=== PATIENT | female | born 1965 | race Caucasian/White ===

== ENCOUNTER 2016-12-31 15:34 | Inpatient (IN) | payer OTHER ==
[~2016-12-31] VITALS: Ht 172.7 cm; Wt 62.0 kg
[2016-12-31] MEDS ORDERED: SODIUM CHLORIDE 0.9% 1,000 ML IV ONE (15:51)
[2016-12-31] MEDS ORDERED: PLEASE ENTER ALLERGIES MC SCH ×2 (16:00)
[2016-12-31] MEDS ORDERED: SODIUM CHLORIDE 0.9% 1,000ML IVBOLUS ONE ×2 (16:00→17:30)
[2016-12-31] MEDS ORDERED: GABA300C10 PO (16:19)
[2016-12-31] MEDS ORDERED: METF10002 PO (16:19)
[2016-12-31] MEDS ORDERED: LOSA25TA5 PO (16:19)
[2016-12-31 17:00] LABS: PH, VENOUS 7.261 pH (7.320-7.420)
[2016-12-31 17:06] LABS: DIFF TOTAL CELLS COUNTED 100 CELL DIFF
[2016-12-31 17:13] LABS: ASPARTATE AMINO TRANSFERASE 17 U/L (15-37); BLOOD UREA NITROGEN 30 mg/dL (7-18)
[2016-12-31] MEDS ORDERED: REGULAR INSULIN 62.5 UNITS in SODIUM CHLORIDE 0.9% 249.375 ML IV PRN ×2 (17:17→19:30)
[2016-12-31 17:18] LABS: IS PT STATUS REG ER OR PRE ER? YES
[2016-12-31] MEDS ORDERED: NS + 40MEQ KCL 1,000 ML IV ONE ×2 (17:31→17:36)
[2016-12-31] MEDS ORDERED: POTASSIUM CHLORIDE 20 MEQ TAB.ER.PRT ONE (17:36)
[2016-12-31] MEDS ORDERED: ONDANSETRON 2MG/ML, 2ML ONE (17:42)
[2016-12-31 17:43] LABS: VERIFY COUNTS? YES
[2016-12-31] MEDS ORDERED: POTASSIUM CHLORIDE 20 MEQ TAB.ER.PRT PO ONE (18:00)
[2016-12-31] MEDS ORDERED: ONDANSETRON 2MG/ML, 2ML IVPush ONE (18:00)
[2016-12-31] MEDS ORDERED: HYDROmorphone 1 MG/ML, 1ML ONE ×2 (18:15→20:09)
[2016-12-31] MEDS: HYDROmorphone 1 MG/ML, 1ML IVPush PRN ×2 (18:26→20:12)
[2016-12-31 19:20] LABS: BLOOD UREA NITROGEN 27 mg/dL (7-18)
[2016-12-31] MEDS ORDERED: ACETAMINOPHEN 325 MG TABLET PO PRN (19:30)
[2016-12-31 21:25] VITALS: BP 117/97
[2016-12-31] MEDS: NYSTATIN 500,000 UNITS/5 ML UDC PO SCH (21:49)
[2016-12-31] MEDS: GABAPENTIN 300 MG CAPSULE PO SCH (21:49)
[2016-12-31] MEDS: NS + 40MEQ KCL 1,000 ML IV SCH (21:49)
[2016-12-31] MEDS: ENOXAPARIN 40 MG/0.4 ML SQ SCH (21:50)
[2016-12-31] MEDS: HYDROcodone/APAP 5/325 TABLET PO PRN (21:50)
[2016-12-31 23:53] LABS: IS PT STATUS REG ER OR PRE ER? NO
[2017-01-01] MEDS: NS + 40MEQ KCL 1,000 ML IV SCH ×4 (00:30→15:30)
[2017-01-01 00:34] LABS: BLOOD UREA NITROGEN 27 mg/dL (7-18)
[2017-01-01] MEDS: D5%-0.45NACL+KCL 40MEQ 1,000 ML IV SCH ×4 (00:34→12:00)
[2017-01-01] MEDS: HYDROcodone/APAP 5/325 TABLET PO PRN ×4 (02:07→18:11)
[2017-01-01 04:00] VITALS: BP 131/90
[2017-01-01 04:09] LABS: DAU SCREEN DISCLAIMER
[2017-01-01 06:01] LABS: ASPARTATE AMINO TRANSFERASE 20 U/L (15-37); BLOOD UREA NITROGEN 21 mg/dL (7-18)
[2017-01-01 06:06] LABS: IS PT STATUS REG ER OR PRE ER? NO
[2017-01-01] MEDS: NYSTATIN 500,000 UNITS/5 ML UDC PO SCH ×4 (06:15→20:43)
[2017-01-01 06:35] LABS: DIFF TOTAL CELLS COUNTED 100 CELL DIFF
[2017-01-01 06:37] LABS: VERIFY COUNTS? YES
[2017-01-01 06:38] LABS: ANISOCYTOSIS 1+
[2017-01-01 08:55] LABS: BLOOD UREA NITROGEN 19 mg/dL (7-18)
[2017-01-01] MEDS ORDERED: ASPIRIN 325 MG TABLET PO SCH (09:00)
[2017-01-01] MEDS: GABAPENTIN 300 MG CAPSULE PO SCH ×3 (09:44→20:43)
[2017-01-01] MEDS: LOSARTAN 25MG TABLET PO SCH (09:44)
[2017-01-01] MEDS ORDERED: D5%-0.45% NACL 1,000 ML IV SCH (12:00)
[2017-01-01] MEDS: D5%-0.45% NACL 1,000 ML IV SCH ×2 (12:10→16:12)
[2017-01-01 12:49] LABS: BLOOD UREA NITROGEN 16 mg/dL (7-18)
[2017-01-01 16:33] LABS: BLOOD UREA NITROGEN 14 mg/dL (7-18)
[2017-01-01] MEDS ORDERED: INSULIN DETEMIR 100 UNITS/ML, PEN ONE (16:49)
[2017-01-01] MEDS: SODIUM CHLORIDE 0.9% 1,000 ML IV SCH (17:04)
[2017-01-01] MEDS ORDERED: INSULIN DETEMIR 100 UNITS/ML, PEN SQ-INSULIN SCH (20:00)
[2017-01-01 20:18] LABS: BLOOD UREA NITROGEN 14 mg/dL (7-18)
[2017-01-01] MEDS: ENOXAPARIN 40 MG/0.4 ML SQ SCH (20:43)
[2017-01-01] MEDS: INSULIN ASPART 100 UNITS/ML, PEN SQ-INSULIN SCH (20:43)
[2017-01-02] MEDS: HYDROcodone/APAP 5/325 TABLET PO PRN ×4 (00:08→16:27)
[2017-01-02 00:31] LABS: BLOOD UREA NITROGEN 12 mg/dL (7-18)
[2017-01-02] MEDS: SODIUM CHLORIDE 0.9% 1,000 ML IV SCH ×3 (02:31→23:57)
[2017-01-02 03:00] VITALS: BP 108/80
[2017-01-02] MEDS: NYSTATIN 500,000 UNITS/5 ML UDC PO SCH ×4 (05:05→23:37)
[2017-01-02 06:14] LABS: BLOOD UREA NITROGEN 12 mg/dL (7-18)
[2017-01-02] MEDS: INSULIN ASPART 100 UNITS/ML, PEN SQ-INSULIN SCH ×4 (07:00→21:15)
[2017-01-02] MEDS ORDERED: INSULIN DETEMIR 100 UNITS/ML, PEN SQ-INSULIN SCH ×2 (08:00→20:00)
[2017-01-02] MEDS ORDERED: DEXTROSE 50%, 50ML VIAL ONE (08:31)
[2017-01-02] MEDS: LOSARTAN 25MG TABLET PO SCH (08:44)
[2017-01-02] MEDS: GABAPENTIN 300 MG CAPSULE PO SCH ×3 (08:45→23:36)
[2017-01-02] MEDS: ASPIRIN 81 MG TABLET EC PO SCH (08:45)
[2017-01-02] MEDS: POTASSIUM CHLORIDE 20 MEQ TAB.ER.PRT PO SCH ×2 (08:45→17:35)
[2017-01-02] MEDS ORDERED: DEXTROSE 50%, 50ML VIAL IVPush ONE (09:00)
[2017-01-02] MEDS: CEFTRIAXONE PMX 1GM/50ML 50 ML IV SCH (12:09)
[2017-01-02 14:58] VITALS: BP 109/71
[2017-01-02] MEDS: OXYcodone IR 5MG TABLET PO PRN ×2 (17:36→21:18)
[2017-01-02 19:15] VITALS: BP 133/91
[2017-01-02] MEDS ORDERED: GLUCAGON 1 MG IM PRN (20:30)
[2017-01-02] MEDS ORDERED: DEXTROSE 50%, 50ML SYRINGE IVPush PRN (20:30)
[2017-01-02] MEDS ORDERED: DEXTROSE 4 GM TAB.CHEW PO PRN (20:30)
[2017-01-02] MEDS ORDERED: ENOXAPARIN 40 MG/0.4 ML SQ SCH (21:00)
[2017-01-02] MEDS: SODIUM CHLORIDE FLUSH 10ML SYR IVF SCH (23:36)
[2017-01-03 00:54] VITALS: BP 114/75
[2017-01-03] MEDS: OXYcodone IR 5MG TABLET PO PRN ×5 (01:41→23:36)
[2017-01-03 06:13] LABS: ASPARTATE AMINO TRANSFERASE 21 U/L (15-37); BLOOD UREA NITROGEN 6 mg/dL (7-18)
[2017-01-03] MEDS: ASPIRIN 81 MG TABLET EC PO SCH ×2 (06:21→09:00)
[2017-01-03] MEDS: NYSTATIN 500,000 UNITS/5 ML UDC PO SCH ×4 (06:21→21:19)
[2017-01-03 06:50] VITALS: BP 90/57
[2017-01-03] MEDS: INSULIN ASPART 100 UNITS/ML, PEN SQ-INSULIN SCH ×4 (07:00→21:00)
[2017-01-03] MEDS ORDERED: CYCLOBENZAPRINE 10 MG TABLET PO PRN (08:00)
[2017-01-03] MEDS: POTASSIUM CHLORIDE 20 MEQ TAB.ER.PRT PO SCH (09:00)
[2017-01-03] MEDS: GABAPENTIN 300 MG CAPSULE PO SCH ×3 (09:00→21:19)
[2017-01-03] MEDS: LOSARTAN 25MG TABLET PO SCH (09:00)
[2017-01-03] MEDS: SODIUM CHLORIDE FLUSH 10ML SYR IVF SCH ×2 (09:00→21:00)
[2017-01-03] MEDS ORDERED: REGADENOSON 0.4 MG/5 ML SYRINGE ONE (09:02)
[2017-01-03 11:48] LABS: IS PT STATUS REG ER OR PRE ER? NO
[2017-01-03] MEDS: CEFTRIAXONE PMX 1GM/50ML 50 ML IV SCH (11:50)
[2017-01-03] MEDS ORDERED: OMNIPAQUE 350 MG/ML, 100ML BOTTLE ONE (12:03)
[2017-01-03 12:45] VITALS: BP 91/70
[2017-01-03] MEDS: PIPERACILLIN/TAZO 3.375 GM in SODIUM CHLORIDE 0.9% 50 ML IV SCH ×2 (13:36→20:04)
[2017-01-03] MEDS: SODIUM CHLORIDE 0.9% 1,000 ML IV SCH ×2 (13:36→21:17)
[2017-01-03 13:49] LABS: ABG COLLECTION SITE RIGHT RADIAL; COLLATERAL CIRCULATION TESTING NORMAL
[2017-01-03] MEDS: HYDROmorphone 1 MG/ML, 1ML IV PRN ×2 (15:34→20:12)
[2017-01-03] MEDS: ENOXAPARIN 40 MG/0.4 ML SQ SCH (23:36)
[2017-01-04] MEDS: PIPERACILLIN/TAZO 3.375 GM in SODIUM CHLORIDE 0.9% 50 ML IV SCH ×4 (00:19→20:17)
[2017-01-04 04:03] VITALS: BP 113/69
[2017-01-04 04:18] VITALS: BP 108/75
[2017-01-04 04:55] LABS: BLOOD UREA NITROGEN 5 mg/dL (7-18)
[2017-01-04 05:00] LABS: ASPARTATE AMINO TRANSFERASE 24 U/L (15-37)
[2017-01-04] MEDS: NYSTATIN 500,000 UNITS/5 ML UDC PO SCH ×4 (05:12→20:26)
[2017-01-04] MEDS: HYDROmorphone 1 MG/ML, 1ML IV PRN ×5 (05:12→23:13)
[2017-01-04] MEDS: ASPIRIN 81 MG TABLET EC PO SCH (05:13)
[2017-01-04] MEDS: NOREPINEPHRINE 4 MG in SODIUM CHLORIDE 0.9% 246 ML IV PRN ×2 (05:14→16:24)
[2017-01-04] MEDS: INSULIN ASPART 100 UNITS/ML, PEN SQ-INSULIN SCH ×4 (06:49→20:23)
[2017-01-04] MEDS: LOSARTAN 25MG TABLET PO SCH (08:56)
[2017-01-04] MEDS: OXYcodone IR 5MG TABLET PO PRN ×3 (10:58→20:17)
[2017-01-04] MEDS: GABAPENTIN 300 MG CAPSULE PO SCH ×3 (10:58→20:26)
[2017-01-04] MEDS: SODIUM CHLORIDE FLUSH 10ML SYR IVF SCH ×2 (11:00→20:17)
[2017-01-04] MEDS: SODIUM CHLORIDE 0.9% 1,000 ML IV SCH ×2 (13:38→23:18)
[2017-01-04] MEDS: ENOXAPARIN 40 MG/0.4 ML SQ SCH (23:20)
[2017-01-05] MEDS: PIPERACILLIN/TAZO 3.375 GM in SODIUM CHLORIDE 0.9% 50 ML IV SCH ×4 (00:26→19:29)
[2017-01-05 04:00] VITALS: BP 106/84
[2017-01-05] MEDS: OXYcodone IR 5MG TABLET PO PRN ×3 (04:28→16:08)
[2017-01-05 04:52] LABS: BLOOD UREA NITROGEN 4 mg/dL (7-18)
[2017-01-05 04:57] LABS: ASPARTATE AMINO TRANSFERASE 17 U/L (15-37)
[2017-01-05] MEDS: ASPIRIN 81 MG TABLET EC PO SCH (06:11)
[2017-01-05] MEDS: NYSTATIN 500,000 UNITS/5 ML UDC PO SCH ×4 (06:11→21:08)
[2017-01-05] MEDS: INSULIN ASPART 100 UNITS/ML, PEN SQ-INSULIN SCH ×4 (06:11→21:00)
[2017-01-05] MEDS: HYDROmorphone 1 MG/ML, 1ML IV PRN ×4 (06:57→22:53)
[2017-01-05] MEDS: LOSARTAN 25MG TABLET PO SCH (09:00)
[2017-01-05] MEDS: GABAPENTIN 300 MG CAPSULE PO SCH ×3 (10:39→21:08)
[2017-01-05] MEDS: SODIUM CHLORIDE FLUSH 10ML SYR IVF SCH ×2 (11:08→21:08)
[2017-01-05] MEDS: SODIUM CHLORIDE 0.9% 1,000 ML IV SCH ×2 (11:08→22:44)
[2017-01-05] MEDS: POTASSIUM CHLORIDE 20 MEQ TAB.ER.PRT PO SCH ×2 (16:09→17:37)
[2017-01-05] MEDS: ENOXAPARIN 40 MG/0.4 ML SQ SCH (22:53)
[2017-01-06] MEDS: PIPERACILLIN/TAZO 3.375 GM in SODIUM CHLORIDE 0.9% 50 ML IV SCH ×4 (01:04→19:56)
[2017-01-06] MEDS: HYDROmorphone 1 MG/ML, 1ML IV PRN ×5 (03:00→21:28)
[2017-01-06 04:00] VITALS: BP 80/63
[2017-01-06 05:07] LABS: BLOOD UREA NITROGEN 3 mg/dL (7-18)
[2017-01-06] MEDS: ASPIRIN 81 MG TABLET EC PO SCH (06:17)
[2017-01-06] MEDS: NYSTATIN 500,000 UNITS/5 ML UDC PO SCH ×4 (06:17→19:57)
[2017-01-06] MEDS: INSULIN ASPART 100 UNITS/ML, PEN SQ-INSULIN SCH ×4 (07:00→21:29)
[2017-01-06] MEDS ORDERED: MAGNESIUM SULFATE PMX 4GM/100M 100 ML IV ONE (07:30)
[2017-01-06] MEDS: POTASSIUM CHLORIDE 20 MEQ TAB.ER.PRT PO SCH (08:12)
[2017-01-06] MEDS: SODIUM CHLORIDE 0.9% 1,000 ML IV SCH ×2 (08:12→19:56)
[2017-01-06] MEDS: SODIUM CHLORIDE FLUSH 10ML SYR IVF SCH ×2 (08:12→19:57)
[2017-01-06] MEDS: LOSARTAN 25MG TABLET PO SCH (08:12)
[2017-01-06] MEDS: GABAPENTIN 300 MG CAPSULE PO SCH ×3 (08:13→19:58)
[2017-01-06] MEDS: POTASSIUM CHLORIDE 10% 40 MEQ/30 ML UDC PO SCH ×2 (08:13→19:57)
[2017-01-06 10:50] VITALS: BP 100/44
[2017-01-06 12:52] VITALS: BP 119/61
[2017-01-06] MEDS: ENOXAPARIN 40 MG/0.4 ML SQ SCH (19:57)
[2017-01-06 20:00] VITALS: BP 119/61
[2017-01-07] MEDS: PIPERACILLIN/TAZO 3.375 GM in SODIUM CHLORIDE 0.9% 50 ML IV SCH ×4 (01:17→21:17)
[2017-01-07 01:38] VITALS: BP 120/68
[2017-01-07] MEDS: HYDROmorphone 1 MG/ML, 1ML IV PRN ×4 (03:36→15:45)
[2017-01-07 04:14] LABS: BLOOD UREA NITROGEN 3 mg/dL (7-18)
[2017-01-07] MEDS: NYSTATIN 500,000 UNITS/5 ML UDC PO SCH ×4 (05:29→21:17)
[2017-01-07] MEDS: ASPIRIN 81 MG TABLET EC PO SCH (05:29)
[2017-01-07] MEDS: SODIUM CHLORIDE 0.9% 1,000 ML IV SCH ×2 (05:29→17:45)
[2017-01-07 06:30] VITALS: BP 111/63
[2017-01-07] MEDS: INSULIN ASPART 100 UNITS/ML, PEN SQ-INSULIN SCH ×4 (07:00→21:00)
[2017-01-07] MEDS: GABAPENTIN 300 MG CAPSULE PO SCH ×3 (08:20→21:17)
[2017-01-07] MEDS: SODIUM CHLORIDE FLUSH 10ML SYR IVF SCH ×2 (08:20→21:17)
[2017-01-07] MEDS: LOSARTAN 25MG TABLET PO SCH (08:20)
[2017-01-07 12:58] VITALS: BP 106/69
[2017-01-07 14:07] LABS: ANA DIRECT Negative (Negative); COMPLEMENT C3 126 mg/dL (82-167); COMPLEMENT C4 38 mg/dL (14-44); INTERMYOFIBRILLAR AB Negative (Neg:<1:20); MITOCHONDRIAL (M2) AB 2.4 Units (0.0-20.0); PARIETAL CELL AB 1.7 Units (0.0-20.0); RA LATEX TURBIDITY <10.0 IU/mL (0.0-13.9); SARCOLEMMA AB Negative (Neg:<1:20); SJOGREN'S SS-A AB <0.2 AI (0.0-0.9); STRIATION AB Negative (Neg:<1:40); THYROID PEROXIDASE (TPO) AB 6 IU/mL (0-34)
[2017-01-07 16:24] LABS: BLOOD UREA NITROGEN 3 mg/dL (7-18)
[2017-01-07 20:08] VITALS: BP 106/74
[2017-01-07] MEDS: ENOXAPARIN 40 MG/0.4 ML SQ SCH (21:17)
[2017-01-07] MEDS: OXYcodone IR 5MG TABLET PO PRN (21:33)
[2017-01-08] MEDS: HYDROmorphone 1 MG/ML, 1ML IV PRN ×3 (00:14→11:16)
[2017-01-08] MEDS: PIPERACILLIN/TAZO 3.375 GM in SODIUM CHLORIDE 0.9% 50 ML IV SCH ×4 (02:18→21:28)
[2017-01-08 02:22] VITALS: BP 102/63
[2017-01-08] MEDS: ASPIRIN 81 MG TABLET EC PO SCH (05:05)
[2017-01-08] MEDS: NYSTATIN 500,000 UNITS/5 ML UDC PO SCH ×4 (05:05→21:00)
[2017-01-08] MEDS: SODIUM CHLORIDE 0.9% 1,000 ML IV SCH ×2 (05:08→13:00)
[2017-01-08 06:07] LABS: ASPARTATE AMINO TRANSFERASE 11 U/L (15-37); BLOOD UREA NITROGEN 3 mg/dL (7-18)
[2017-01-08] MEDS: INSULIN ASPART 100 UNITS/ML, PEN SQ-INSULIN SCH ×4 (07:00→21:33)
[2017-01-08 07:21] VITALS: BP 91/54
[2017-01-08] MEDS ORDERED: MIDAZOLAM 1 MG/ML, 5ML ONE (08:00)
[2017-01-08] MEDS ORDERED: SUCCINYLCHOLINE 20 MG/ML, 10ML ONE (08:00)
[2017-01-08] MEDS ORDERED: ETOMIDATE 20 MG/10 ML ONE (08:00)
[2017-01-08] MEDS ORDERED: PROPOFOL 10 MG/ML, 100ML IV ONE (08:00)
[2017-01-08] MEDS: LOSARTAN 25MG TABLET PO SCH (09:00)
[2017-01-08] MEDS: GABAPENTIN 300 MG CAPSULE PO SCH ×3 (10:06→21:00)
[2017-01-08] MEDS: OXYcodone IR 5MG TABLET PO PRN (10:06)
[2017-01-08] MEDS: SODIUM CHLORIDE FLUSH 10ML SYR IVF SCH ×2 (10:07→21:28)
[2017-01-08 11:03] VITALS: BP 124/66
[2017-01-08] MEDS ORDERED: HYDROmorphone 1 MG/ML, 1ML ONE (11:12)
[2017-01-08] MEDS ORDERED: LORazepam 2 MG/ML, 1ML ONE (13:40)
[2017-01-08] MEDS ORDERED: OMNIPAQUE 350 MG/ML, 100ML BOTTLE ONE (13:58)
[2017-01-08] MEDS ORDERED: VANCOMYCIN PMX 1GM/200ML 200 ML IV STA (14:17)
[2017-01-08 14:24] VITALS: BP 153/97
[2017-01-08] MEDS ORDERED: PHARMACOKINETIC CONSULTATION MC ONE (14:30)
[2017-01-08] MEDS: VANCOMYCIN 1,400 MG in SODIUM CHLORIDE 0.9% 250 ML IV SCH (14:30)
[2017-01-08] MEDS ORDERED: PHARMACOKINETIC MONITORING MC PRN (14:30)
[2017-01-08] MEDS ORDERED: LORazepam 2 MG/ML, 1ML IVPush ONE (14:30)
[2017-01-08] MEDS ORDERED: POTASSIUM CHLORIDE 40 MEQ in SODIUM CHLORIDE 0.9% 500 ML IV ONE ×2 (14:30→22:30)
[2017-01-08] MEDS ORDERED: POTASSIUM PHOSPHATE 44 MEQ in SODIUM CHLORIDE 0.9% 500 ML IV ONE (14:30)
[2017-01-08] MEDS ORDERED: MAGNESIUM SULFATE PMX 2GM/50ML 50 ML IV ONE ×3 (14:30→20:30)
[2017-01-08] MEDS ORDERED: VANCOMYCIN PER PHARMACY MC PRN (14:30)
[2017-01-08] MEDS ORDERED: FUROSEMIDE 20 MG/2 ML ONE (14:33)
[2017-01-08 14:53] LABS: ABG COLLECTION SITE RIGHT RADIAL
[2017-01-08 14:54] LABS: COLLATERAL CIRCULATION TESTING NORMAL
[2017-01-08] MEDS ORDERED: FUROSEMIDE 40 MG/4 ML IV ONE (15:00)
[2017-01-08 16:24] LABS: ABG COLLECTION SITE LEFT RADIAL; COLLATERAL CIRCULATION TESTING NORMAL
[2017-01-08] MEDS: MICAFUNGIN 100 MG in SODIUM CHLORIDE 0.9% 100 ML IV SCH (18:24)
[2017-01-08] MEDS: methylPREDNISolone SOD SUCC 125 MG/2 ML IVPush SCH (18:30)
[2017-01-08] MEDS ORDERED: LIDOCAINE-MPF 1%, 2ML ENDO PRN (20:30)
[2017-01-08] MEDS ORDERED: MIDAZOLAM 1 MG/ML, 2ML IVPush PRN (20:30)
[2017-01-08 21:10] LABS: ABG COLLECTION SITE LEFT RADIAL; COLLATERAL CIRCULATION TESTING NORMAL
[2017-01-08] MEDS: ENOXAPARIN 40 MG/0.4 ML SQ SCH (21:34)
[2017-01-09] MEDS: PROPOFOL 100 ML IV PRN ×2 (00:11→06:17)
[2017-01-09] MEDS: methylPREDNISolone SOD SUCC 125 MG/2 ML IVPush SCH ×4 (00:54→17:43)
[2017-01-09] MEDS: PIPERACILLIN/TAZO 3.375 GM in SODIUM CHLORIDE 0.9% 50 ML IV SCH ×4 (02:05→20:56)
[2017-01-09] MEDS: NOREPINEPHRINE 4 MG in SODIUM CHLORIDE 0.9% 246 ML IV PRN ×2 (02:09→05:17)
[2017-01-09] MEDS: VANCOMYCIN 1,400 MG in SODIUM CHLORIDE 0.9% 250 ML IV SCH ×2 (02:12→14:51)
[2017-01-09 04:10] VITALS: BP 94/56
[2017-01-09 04:50] LABS: ABG COLLECTION SITE LEFT RADIAL; COLLATERAL CIRCULATION TESTING NORMAL
[2017-01-09 05:01] LABS: BLOOD UREA NITROGEN 5 mg/dL (7-18)
[2017-01-09] MEDS: FENTANYL PF 100 MCG/2ML IVPush PRN ×2 (05:02→17:08)
[2017-01-09] MEDS: ASPIRIN 81 MG TABLET EC PO SCH (05:48)
[2017-01-09] MEDS: NYSTATIN 500,000 UNITS/5 ML UDC PO SCH ×4 (06:00→20:59)
[2017-01-09] MEDS: INSULIN ASPART 100 UNITS/ML, PEN SQ-INSULIN SCH ×4 (06:22→21:07)
[2017-01-09] MEDS: SODIUM CHLORIDE FLUSH 10ML SYR IVF SCH ×2 (08:06→20:56)
[2017-01-09] MEDS: FAMOTIDINE 20 MG/2 ML IVPush SCH ×2 (10:02→20:55)
[2017-01-09] MEDS: GABAPENTIN 300 MG CAPSULE PO SCH ×3 (10:03→20:59)
[2017-01-09] MEDS: LOSARTAN 25MG TABLET PO SCH (10:03)
[2017-01-09] MEDS ORDERED: POTASSIUM CHLORIDE 40 MEQ in SODIUM CHLORIDE 0.9% 100 ML IV ONE (15:30)
[2017-01-09] MEDS ORDERED: FUROSEMIDE 20 MG/2 ML IV ONE (15:30)
[2017-01-09] MEDS: MICAFUNGIN 100 MG in SODIUM CHLORIDE 0.9% 100 ML IV SCH (16:39)
[2017-01-09] MEDS: HYDROmorphone 1 MG/ML, 1ML IV PRN (20:55)
[2017-01-09] MEDS: ENOXAPARIN 40 MG/0.4 ML SQ SCH (20:55)
[2017-01-10] MEDS: methylPREDNISolone SOD SUCC 125 MG/2 ML IVPush SCH ×5 (00:59→23:44)
[2017-01-10] MEDS: PIPERACILLIN/TAZO 3.375 GM in SODIUM CHLORIDE 0.9% 50 ML IV SCH ×4 (01:30→19:35)
[2017-01-10] MEDS: VANCOMYCIN 1,400 MG in SODIUM CHLORIDE 0.9% 250 ML IV SCH ×2 (01:44→21:59)
[2017-01-10] MEDS ORDERED: SODIUM CHLORIDE 0.9%, 500ML IVBOLUS ONE (02:00)
[2017-01-10] MEDS: PROPOFOL 100 ML IV PRN (04:02)
[2017-01-10 04:13] LABS: ASPARTATE AMINO TRANSFERASE 13 U/L (15-37); BLOOD UREA NITROGEN 8 mg/dL (7-18)
[2017-01-10 04:30] VITALS: BP 89/49
[2017-01-10] MEDS ORDERED: FUROSEMIDE 20 MG/2 ML IV ONE (04:30)
[2017-01-10 04:34] LABS: ABG COLLECTION SITE RIGHT RADIAL; COLLATERAL CIRCULATION TESTING NORMAL
[2017-01-10] MEDS: ASPIRIN 81 MG TABLET EC PO SCH (06:09)
[2017-01-10] MEDS: NYSTATIN 500,000 UNITS/5 ML UDC PO SCH ×4 (06:09→20:32)
[2017-01-10] MEDS: INSULIN ASPART 100 UNITS/ML, PEN SQ-INSULIN SCH ×4 (06:19→20:32)
[2017-01-10] MEDS: LOSARTAN 25MG TABLET PO SCH (08:59)
[2017-01-10] MEDS: FAMOTIDINE 20 MG/2 ML IVPush SCH ×2 (09:54→20:32)
[2017-01-10] MEDS: GABAPENTIN 300 MG CAPSULE PO SCH ×3 (09:54→20:32)
[2017-01-10] MEDS: SODIUM CHLORIDE FLUSH 10ML SYR IVF SCH ×2 (09:54→20:39)
[2017-01-10] MEDS: MICAFUNGIN 100 MG in SODIUM CHLORIDE 0.9% 100 ML IV SCH (16:29)
[2017-01-10] MEDS: NOREPINEPHRINE 4 MG in SODIUM CHLORIDE 0.9% 246 ML IV PRN (20:32)
[2017-01-10] MEDS: ENOXAPARIN 40 MG/0.4 ML SQ SCH (20:32)
[2017-01-11] MEDS ORDERED: SODIUM CHLORIDE 0.9%, 500ML IVBOLUS ONE (00:30)
[2017-01-11] MEDS: PIPERACILLIN/TAZO 3.375 GM in SODIUM CHLORIDE 0.9% 50 ML IV SCH ×4 (02:10→21:05)
[2017-01-11] MEDS: INSULIN ASPART 100 UNITS/ML, PEN SQ-INSULIN SCH ×4 (02:16→21:05)
[2017-01-11 04:37] LABS: ABG COLLECTION SITE RIGHT RADIAL; COLLATERAL CIRCULATION TESTING NORMAL
[2017-01-11 04:55] LABS: ASPARTATE AMINO TRANSFERASE 9 U/L (15-37); BLOOD UREA NITROGEN 15 mg/dL (7-18)
[2017-01-11 05:07] LABS: HIV 1&2 ANTIBODY SCREEN Nonreactive (Nonreactive); HIV-1 p24 ANTIGEN Nonreactive (Nonreactive)
[2017-01-11 05:10] VITALS: BP 98/74
[2017-01-11] MEDS: NYSTATIN 500,000 UNITS/5 ML UDC PO SCH ×4 (05:22→21:06)
[2017-01-11] MEDS ORDERED: ASPIRIN 81 MG TABLET EC PO SCH (06:00)
[2017-01-11] MEDS: methylPREDNISolone SOD SUCC 125 MG/2 ML IVPush SCH ×2 (06:09→21:06)
[2017-01-11] MEDS: ASPIRIN 81 MG TABLET CHEW PO SCH (06:23)
[2017-01-11] MEDS: SODIUM CHLORIDE FLUSH 10ML SYR IVF SCH ×2 (08:55→21:06)
[2017-01-11] MEDS: LOSARTAN 25MG TABLET PO SCH (08:56)
[2017-01-11] MEDS: FAMOTIDINE 20 MG/2 ML IVPush SCH ×2 (08:56→21:06)
[2017-01-11] MEDS: GABAPENTIN 300 MG CAPSULE PO SCH ×3 (08:56→21:00)
[2017-01-11] MEDS: OXYcodone IR 5MG TABLET PO PRN ×2 (10:26→21:52)
[2017-01-11] MEDS ORDERED: GADOBUTROL 7.5 MMOL/7.5 ML PFS ONE (18:27)
[2017-01-11] MEDS: VANCOMYCIN 1,400 MG in SODIUM CHLORIDE 0.9% 250 ML IV SCH (19:03)
[2017-01-11] MEDS: ENOXAPARIN 40 MG/0.4 ML SQ SCH (21:06)
[2017-01-11] MEDS: MICAFUNGIN 100 MG in SODIUM CHLORIDE 0.9% 100 ML IV SCH (21:52)
[2017-01-11] MEDS: PROPOFOL 100 ML IV PRN (23:16)
[2017-01-12] MEDS: INSULIN ASPART 100 UNITS/ML, PEN SQ-INSULIN SCH ×4 (03:22→20:48)
[2017-01-12] MEDS: PIPERACILLIN/TAZO 3.375 GM in SODIUM CHLORIDE 0.9% 50 ML IV SCH ×4 (03:22→20:48)
[2017-01-12] MEDS: PROPOFOL 100 ML IV PRN (04:29)
[2017-01-12 04:34] LABS: ABG COLLECTION SITE LEFT RADIAL; COLLATERAL CIRCULATION TESTING NORMAL
[2017-01-12] MEDS: NYSTATIN 500,000 UNITS/5 ML UDC PO SCH ×4 (05:44→20:49)
[2017-01-12] MEDS: ASPIRIN 81 MG TABLET CHEW PO SCH (05:44)
[2017-01-12 06:10] VITALS: BP 115/69
[2017-01-12 07:22] LABS: FIO2 30 %
[2017-01-12] MEDS: LOSARTAN 25MG TABLET PO SCH (09:00)
[2017-01-12 09:22] LABS: BLOOD UREA NITROGEN 24 mg/dL (7-18)
[2017-01-12] MEDS: GABAPENTIN 300 MG CAPSULE PO SCH ×3 (09:31→20:49)
[2017-01-12] MEDS: methylPREDNISolone SOD SUCC 125 MG/2 ML IVPush SCH ×2 (09:33→20:48)
[2017-01-12] MEDS: FAMOTIDINE 20 MG/2 ML IVPush SCH ×2 (09:33→20:48)
[2017-01-12] MEDS: SODIUM CHLORIDE FLUSH 10ML SYR IVF SCH ×2 (09:51→20:49)
[2017-01-12 10:21] LABS: ASPARTATE AMINO TRANSFERASE 16 U/L (15-37)
[2017-01-12 10:43] LABS: HEP B SURF. AB < 3.1 mIU/mL (0.0-10.0)
[2017-01-12 11:21] LABS: HEPATITIS C VIRUS ANTIBODY Nonreactive (Nonreactive)
[2017-01-12] MEDS: VANCOMYCIN 1,400 MG in SODIUM CHLORIDE 0.9% 250 ML IV SCH (13:06)
[2017-01-12] MEDS ORDERED: ALBUMIN HUMAN 25% 100 ML IV ONE (14:00)
[2017-01-12] MEDS ORDERED: FUROSEMIDE 40 MG/4 ML IV ONE (15:30)
[2017-01-12] MEDS: MICAFUNGIN 100 MG in SODIUM CHLORIDE 0.9% 100 ML IV SCH (20:48)
[2017-01-12] MEDS: ENOXAPARIN 40 MG/0.4 ML SQ SCH (20:49)
[2017-01-12] MEDS: OXYcodone IR 5MG TABLET PO PRN (20:49)
[2017-01-13] MEDS: INSULIN ASPART 100 UNITS/ML, PEN SQ-INSULIN SCH ×4 (04:01→20:42)
[2017-01-13] MEDS: PIPERACILLIN/TAZO 3.375 GM in SODIUM CHLORIDE 0.9% 50 ML IV SCH ×4 (04:02→23:42)
[2017-01-13 04:42] LABS: ABG COLLECTION SITE RIGHT RADIAL; COLLATERAL CIRCULATION TESTING NORMAL
[2017-01-13 05:04] VITALS: BP 121/82
[2017-01-13 05:19] LABS: BLOOD UREA NITROGEN 25 mg/dL (7-18)
[2017-01-13] MEDS: OXYcodone IR 5MG TABLET PO PRN ×2 (05:48→20:48)
[2017-01-13] MEDS: NYSTATIN 500,000 UNITS/5 ML UDC PO SCH ×4 (05:48→20:41)
[2017-01-13] MEDS: ASPIRIN 81 MG TABLET CHEW PO SCH (06:20)
[2017-01-13] MEDS: VANCOMYCIN 1,400 MG in SODIUM CHLORIDE 0.9% 250 ML IV SCH (07:00)
[2017-01-13] MEDS: methylPREDNISolone SOD SUCC 125 MG/2 ML IVPush SCH (09:00)
[2017-01-13] MEDS: FAMOTIDINE 20 MG/2 ML IVPush SCH ×2 (09:35→20:41)
[2017-01-13] MEDS: LOSARTAN 25MG TABLET PO SCH (09:35)
[2017-01-13] MEDS: GABAPENTIN 300 MG CAPSULE PO SCH ×3 (09:35→20:41)
[2017-01-13] MEDS: SODIUM CHLORIDE FLUSH 10ML SYR IVF SCH ×2 (09:35→20:41)
[2017-01-13 12:55] VITALS: BP 121/88
[2017-01-13 19:53] VITALS: BP 101/63
[2017-01-13] MEDS: ENOXAPARIN 40 MG/0.4 ML SQ SCH (20:41)
[2017-01-13] MEDS: MICAFUNGIN 100 MG in SODIUM CHLORIDE 0.9% 100 ML IV SCH (22:21)
[2017-01-14] MEDS: VANCOMYCIN 1,400 MG in SODIUM CHLORIDE 0.9% 250 ML IV SCH (01:38)
[2017-01-14 02:23] VITALS: BP 136/72
[2017-01-14] MEDS: PIPERACILLIN/TAZO 3.375 GM in SODIUM CHLORIDE 0.9% 50 ML IV SCH ×4 (03:57→22:35)
[2017-01-14 04:35] LABS: ASPARTATE AMINO TRANSFERASE 8 U/L (15-37); BLOOD UREA NITROGEN 29 mg/dL (7-18)
[2017-01-14] MEDS: ASPIRIN 81 MG TABLET CHEW PO SCH (05:08)
[2017-01-14] MEDS: NYSTATIN 500,000 UNITS/5 ML UDC PO SCH ×4 (05:08→21:11)
[2017-01-14] MEDS: INSULIN ASPART 100 UNITS/ML, PEN SQ-INSULIN SCH ×4 (07:00→21:13)
[2017-01-14 08:00] VITALS: BP 131/71
[2017-01-14] MEDS: LOSARTAN 25MG TABLET PO SCH (09:29)
[2017-01-14] MEDS: FAMOTIDINE 20 MG/2 ML IVPush SCH ×2 (09:29→21:21)
[2017-01-14] MEDS: GABAPENTIN 300 MG CAPSULE PO SCH ×3 (09:29→21:11)
[2017-01-14] MEDS: SODIUM CHLORIDE FLUSH 10ML SYR IVF SCH ×2 (09:29→21:00)
[2017-01-14 15:03] VITALS: BP 129/73
[2017-01-14] MEDS ORDERED: POTASSIUM CHLORIDE 20 MEQ TAB.ER.PRT PO ONE (15:30)
[2017-01-14 20:59] VITALS: BP 133/83
[2017-01-14] MEDS: ENOXAPARIN 40 MG/0.4 ML SQ SCH (21:12)
[2017-01-14] MEDS: OXYcodone IR 5MG TABLET PO PRN (21:13)
[2017-01-14] MEDS: MICAFUNGIN 100 MG in SODIUM CHLORIDE 0.9% 100 ML IV SCH (21:13)
[2017-01-15 02:06] VITALS: BP 133/87
[2017-01-15] MEDS: PIPERACILLIN/TAZO 3.375 GM in SODIUM CHLORIDE 0.9% 50 ML IV SCH ×4 (03:40→23:20)
[2017-01-15 04:09] LABS: BLOOD UREA NITROGEN 29 mg/dL (7-18); DIFF TOTAL CELLS COUNTED 100 CELL DIFF
[2017-01-15 04:12] LABS: ANISOCYTOSIS 1+; POLYCHROMASIA 1+; VERIFY COUNTS? YES
[2017-01-15 04:13] LABS: HYPOCHROMIA 1+; MONOS WITH VACUOLES 1+
[2017-01-15] MEDS: OXYcodone IR 5MG TABLET PO PRN (04:59)
[2017-01-15] MEDS: ASPIRIN 81 MG TABLET CHEW PO SCH (05:39)
[2017-01-15] MEDS: NYSTATIN 500,000 UNITS/5 ML UDC PO SCH ×4 (05:39→21:13)
[2017-01-15 06:38] VITALS: BP 131/82
[2017-01-15] MEDS: INSULIN ASPART 100 UNITS/ML, PEN SQ-INSULIN SCH ×4 (07:00→21:14)
[2017-01-15] MEDS: FAMOTIDINE 20 MG/2 ML IVPush SCH ×2 (08:52→21:13)
[2017-01-15] MEDS: SODIUM CHLORIDE FLUSH 10ML SYR IVF SCH ×2 (08:52→21:00)
[2017-01-15] MEDS: LOSARTAN 25MG TABLET PO SCH (08:53)
[2017-01-15] MEDS: GABAPENTIN 300 MG CAPSULE PO SCH ×3 (08:53→21:13)
[2017-01-15 13:17] VITALS: BP 135/84
[2017-01-15] MEDS: HYDROmorphone 1 MG/ML, 1ML IV PRN (17:11)
[2017-01-15 20:58] VITALS: BP 146/105
[2017-01-15] MEDS: MICAFUNGIN 100 MG in SODIUM CHLORIDE 0.9% 100 ML IV SCH (21:13)
[2017-01-15] MEDS: ENOXAPARIN 40 MG/0.4 ML SQ SCH (21:14)
[2017-01-16 02:48] VITALS: BP 143/96
[2017-01-16] MEDS: OXYcodone IR 5MG TABLET PO PRN ×3 (03:44→17:28)
[2017-01-16 03:58] LABS: BLOOD UREA NITROGEN 27 mg/dL (7-18)
[2017-01-16] MEDS: ASPIRIN 81 MG TABLET CHEW PO SCH (05:24)
[2017-01-16] MEDS: PIPERACILLIN/TAZO 3.375 GM in SODIUM CHLORIDE 0.9% 50 ML IV SCH ×4 (05:24→22:36)
[2017-01-16] MEDS: NYSTATIN 500,000 UNITS/5 ML UDC PO SCH ×4 (06:07→22:24)
[2017-01-16 07:21] VITALS: BP 116/87
[2017-01-16] MEDS: INSULIN ASPART 100 UNITS/ML, PEN SQ-INSULIN SCH ×4 (08:00→21:00)
[2017-01-16] MEDS: FAMOTIDINE 20 MG/2 ML IVPush SCH ×2 (09:04→22:23)
[2017-01-16] MEDS: SODIUM CHLORIDE FLUSH 10ML SYR IVF SCH ×2 (09:04→22:26)
[2017-01-16] MEDS: GABAPENTIN 300 MG CAPSULE PO SCH ×3 (09:04→22:24)
[2017-01-16] MEDS: LOSARTAN 25MG TABLET PO SCH (09:05)
[2017-01-16 14:17] VITALS: BP 122/84
[2017-01-16 17:00] VITALS: BP 142/90
[2017-01-16] MEDS ORDERED: POTASSIUM CHLORIDE 20 MEQ TAB.ER.PRT PO ONE (17:00)
[2017-01-16] MEDS: METOPROLOL TARTRATE 25 MG TABLET PO SCH (17:33)
[2017-01-16 18:27] VITALS: BP 138/75
[2017-01-16] MEDS: ENOXAPARIN 40 MG/0.4 ML SQ SCH (22:27)
[2017-01-16 22:53] LABS: ABG COLLECTION SITE RIGHT RADIAL; COLLATERAL CIRCULATION TESTING NORMAL
[2017-01-16 23:26] LABS: ABG COLLECTION SITE RIGHT RADIAL; COLLATERAL CIRCULATION TESTING NORMAL
[2017-01-16] MEDS: MICAFUNGIN 100 MG in SODIUM CHLORIDE 0.9% 100 ML IV SCH (23:33)
[2017-01-17] MEDS ORDERED: FUROSEMIDE 20 MG/2 ML ONE (00:10)
[2017-01-17] MEDS ORDERED: VANCOMYCIN PER PHARMACY MC PRN (00:30)
[2017-01-17] MEDS ORDERED: FUROSEMIDE 20 MG/2 ML IV ONE (00:30)
[2017-01-17 00:47] VITALS: BP 108/86
[2017-01-17 01:01] LABS: ABG COLLECTION SITE RIGHT RADIAL; COLLATERAL CIRCULATION TESTING NORMAL
[2017-01-17 01:14] LABS: BLOOD UREA NITROGEN 25 mg/dL (7-18)
[2017-01-17] MEDS: PIPERACILLIN/TAZO 3.375 GM in SODIUM CHLORIDE 0.9% 50 ML IV SCH ×4 (03:19→21:53)
[2017-01-17] MEDS: METOPROLOL TARTRATE 25 MG TABLET PO SCH ×2 (06:41→16:48)
[2017-01-17] MEDS: ASPIRIN 81 MG TABLET CHEW PO SCH (06:41)
[2017-01-17] MEDS: NYSTATIN 500,000 UNITS/5 ML UDC PO SCH ×4 (06:43→20:12)
[2017-01-17] MEDS: INSULIN ASPART 100 UNITS/ML, PEN SQ-INSULIN SCH ×4 (07:00→20:13)
[2017-01-17 07:02] VITALS: BP 121/80
[2017-01-17] MEDS: LOSARTAN 25MG TABLET PO SCH (08:24)
[2017-01-17] MEDS: FAMOTIDINE 20 MG/2 ML IVPush SCH ×2 (08:24→20:12)
[2017-01-17] MEDS: GABAPENTIN 300 MG CAPSULE PO SCH ×3 (08:24→20:12)
[2017-01-17] MEDS: SODIUM CHLORIDE FLUSH 10ML SYR IVF SCH ×2 (08:25→20:11)
[2017-01-17] MEDS ORDERED: VANCOMYCIN PMX 1GM/200ML 200 ML IVPB ONE (11:00)
[2017-01-17 13:03] VITALS: BP 115/73
[2017-01-17 18:35] VITALS: BP 126/88
[2017-01-17] MEDS: SODIUM CHLORIDE 0.9% 1,000 ML IV SCH (20:10)
[2017-01-17] MEDS: OXYcodone IR 5MG TABLET PO PRN (20:11)
[2017-01-17] MEDS: ENOXAPARIN 40 MG/0.4 ML SQ SCH (20:13)
[2017-01-17] MEDS: MICAFUNGIN 100 MG in SODIUM CHLORIDE 0.9% 100 ML IV SCH (21:39)
[2017-01-18 02:21] VITALS: BP 132/81
[2017-01-18] MEDS: METOPROLOL TARTRATE 25 MG TABLET PO SCH ×2 (04:47→16:56)
[2017-01-18] MEDS: ASPIRIN 81 MG TABLET CHEW PO SCH (04:47)
[2017-01-18] MEDS: NYSTATIN 500,000 UNITS/5 ML UDC PO SCH ×4 (04:47→21:00)
[2017-01-18] MEDS: PIPERACILLIN/TAZO 3.375 GM in SODIUM CHLORIDE 0.9% 50 ML IV SCH ×4 (05:49→21:59)
[2017-01-18 06:38] LABS: DIFF TOTAL CELLS COUNTED 100 CELL DIFF
[2017-01-18 06:45] LABS: ASPARTATE AMINO TRANSFERASE 14 U/L (15-37); BLOOD UREA NITROGEN 24 mg/dL (7-18)
[2017-01-18 06:58] LABS: POLYCHROMASIA 1+; VERIFY COUNTS? YES
[2017-01-18] MEDS: INSULIN ASPART 100 UNITS/ML, PEN SQ-INSULIN SCH ×4 (07:00→21:00)
[2017-01-18] MEDS ORDERED: POTASSIUM CHLORIDE 40 MEQ in SODIUM CHLORIDE 0.9% 500 ML IV ONE (08:00)
[2017-01-18] MEDS ORDERED: FUROSEMIDE 40 MG/4 ML IV ONE (08:00)
[2017-01-18] MEDS ORDERED: POTASSIUM CHLORIDE 20 MEQ TAB.ER.PRT PO STA (08:02)
[2017-01-18] MEDS ORDERED: FUROSEMIDE 20 MG/2 ML ONE (08:03)
[2017-01-18] MEDS: FAMOTIDINE 20 MG/2 ML IVPush SCH ×2 (09:00→20:58)
[2017-01-18] MEDS ORDERED: POTASSIUM PHOSPHATE 22 MEQ in SODIUM CHLORIDE 0.9% 500 ML IV ONE (09:00)
[2017-01-18] MEDS: GABAPENTIN 300 MG CAPSULE PO SCH ×3 (09:00→20:59)
[2017-01-18] MEDS: LOSARTAN 25MG TABLET PO SCH (09:00)
[2017-01-18 09:25] VITALS: BP 115/83
[2017-01-18 12:25] VITALS: BP 137/78
[2017-01-18] MEDS: SODIUM CHLORIDE FLUSH 10ML SYR IVF SCH ×2 (12:59→20:59)
[2017-01-18 15:42] LABS: BLOOD UREA NITROGEN 20 mg/dL (7-18)
[2017-01-18 20:50] VITALS: BP 109/75
[2017-01-18] MEDS: ENOXAPARIN 40 MG/0.4 ML SQ SCH (20:59)
[2017-01-18] MEDS ORDERED: POTASSIUM CHLORIDE 20 MEQ TAB.ER.PRT PO ONE (21:00)
[2017-01-18] MEDS: MICAFUNGIN 100 MG in SODIUM CHLORIDE 0.9% 100 ML IV SCH (21:01)
[2017-01-18] MEDS: SODIUM CHLORIDE 0.9% 1,000 ML IV SCH (21:59)
[2017-01-19 01:29] VITALS: BP 122/85
[2017-01-19] MEDS: OXYcodone IR 5MG TABLET PO PRN ×2 (02:27→18:34)
[2017-01-19] MEDS: ASPIRIN 81 MG TABLET CHEW PO SCH (04:34)
[2017-01-19] MEDS: METOPROLOL TARTRATE 25 MG TABLET PO SCH ×2 (04:34→17:13)
[2017-01-19] MEDS: PIPERACILLIN/TAZO 3.375 GM in SODIUM CHLORIDE 0.9% 50 ML IV SCH ×3 (04:34→17:13)
[2017-01-19] MEDS: NYSTATIN 500,000 UNITS/5 ML UDC PO SCH ×4 (04:34→20:46)
[2017-01-19 06:26] LABS: BLOOD UREA NITROGEN 19 mg/dL (7-18)
[2017-01-19 06:43] LABS: DIFF TOTAL CELLS COUNTED 100 CELL DIFF
[2017-01-19 06:46] LABS: ANISOCYTOSIS 1+; VERIFY COUNTS? YES
[2017-01-19] MEDS: INSULIN ASPART 100 UNITS/ML, PEN SQ-INSULIN SCH ×4 (07:00→20:46)
[2017-01-19] MEDS ORDERED: VANCOMYCIN 1,100 MG in SODIUM CHLORIDE 0.9% 250 ML IV ONE (07:00)
[2017-01-19 08:03] VITALS: BP 97/59
[2017-01-19] MEDS: SODIUM CHLORIDE FLUSH 10ML SYR IVF SCH ×2 (09:04→20:45)
[2017-01-19] MEDS: FAMOTIDINE 20 MG/2 ML IVPush SCH ×2 (09:05→20:46)
[2017-01-19] MEDS: LOSARTAN 25MG TABLET PO SCH (09:05)
[2017-01-19] MEDS: GABAPENTIN 300 MG CAPSULE PO SCH ×3 (09:05→20:46)
[2017-01-19] MEDS ORDERED: FUROSEMIDE 40 MG/4 ML IV ONE (10:30)
[2017-01-19] MEDS ORDERED: POTASSIUM CHLORIDE 20 MEQ PACKET PO ONE (10:30)
[2017-01-19 13:00] VITALS: BP 106/68
[2017-01-19 17:00] VITALS: BP 125/71
[2017-01-19 18:54] VITALS: BP 100/68
[2017-01-19] MEDS: ENOXAPARIN 40 MG/0.4 ML SQ SCH (20:46)
[2017-01-19] MEDS: MICAFUNGIN 100 MG in SODIUM CHLORIDE 0.9% 100 ML IV SCH (20:47)
[2017-01-20 00:29] VITALS: BP 98/55
[2017-01-20] MEDS ORDERED: PIPERACILLIN/TAZO 3.375 GM in SODIUM CHLORIDE 0.9% 100 ML IV SCH (04:00)
[2017-01-20] MEDS: ASPIRIN 81 MG TABLET CHEW PO SCH (05:26)
[2017-01-20] MEDS: METOPROLOL TARTRATE 25 MG TABLET PO SCH ×2 (05:26→16:45)
[2017-01-20] MEDS: NYSTATIN 500,000 UNITS/5 ML UDC PO SCH ×4 (05:27→21:14)
[2017-01-20 05:59] LABS: BLOOD UREA NITROGEN 18 mg/dL (7-18)
[2017-01-20 06:50] VITALS: BP 88/61
[2017-01-20] MEDS: INSULIN ASPART 100 UNITS/ML, PEN SQ-INSULIN SCH ×4 (07:00→21:00)
[2017-01-20] MEDS: SODIUM CHLORIDE FLUSH 10ML SYR IVF SCH ×2 (08:41→21:14)
[2017-01-20] MEDS: GABAPENTIN 300 MG CAPSULE PO SCH ×3 (08:42→21:14)
[2017-01-20] MEDS: FAMOTIDINE 20 MG/2 ML IVPush SCH ×2 (08:42→21:14)
[2017-01-20] MEDS: LOSARTAN 25MG TABLET PO SCH (08:42)
[2017-01-20] MEDS ORDERED: FUROSEMIDE 40 MG/4 ML IV ONE (09:00)
[2017-01-20] MEDS ORDERED: DEXTROSE 5% 1,000 ML IV SCH (10:00)
[2017-01-20 12:25] VITALS: BP 86/55
[2017-01-20 15:19] VITALS: BP 106/70
[2017-01-20] MEDS ORDERED: MAGNESIUM SULFATE PMX 4GM/100M 100 ML IV ONE (15:30)
[2017-01-20] MEDS ORDERED: POTASSIUM PHOSPHATE 44 MEQ in SODIUM CHLORIDE 0.9% 500 ML IV ONE (15:30)
[2017-01-20] MEDS ORDERED: PIPERACILLIN/TAZO 3.375 GM in SODIUM CHLORIDE 0.9% 50 ML IV SCH (16:00)
[2017-01-20] MEDS ORDERED: METOPROLOL TARTRATE 25 MG TABLET PO SCH (18:00)
[2017-01-20 19:24] VITALS: BP 89/59
[2017-01-20] MEDS: VANCOMYCIN 1,200 MG in SODIUM CHLORIDE 0.9% 250 ML IV SCH (20:08)
[2017-01-20 21:12] VITALS: BP 102/72
[2017-01-20] MEDS: ALBUMIN HUMAN 25% 50 ML IV SCH (21:13)
[2017-01-20] MEDS: ENOXAPARIN 40 MG/0.4 ML SQ SCH (21:14)
[2017-01-20] MEDS: MICAFUNGIN 100 MG in SODIUM CHLORIDE 0.9% 100 ML IV SCH (22:08)
[2017-01-20] MEDS: DEXTROSE 5% 1,000 ML IV SCH (22:09)
[2017-01-20] MEDS: PIPERACILLIN/TAZO/PMX 3.375GM 50 ML IV SCH (23:14)
[2017-01-21 01:47] VITALS: BP 103/67
[2017-01-21] MEDS: OXYcodone IR 5MG TABLET PO PRN ×2 (03:29→10:36)
[2017-01-21 04:05] LABS: BLOOD UREA NITROGEN 17 mg/dL (7-18)
[2017-01-21 05:20] VITALS: BP 92/57
[2017-01-21] MEDS: PIPERACILLIN/TAZO/PMX 3.375GM 50 ML IV SCH ×4 (05:20→23:01)
[2017-01-21] MEDS: NYSTATIN 500,000 UNITS/5 ML UDC PO SCH ×4 (05:20→21:30)
[2017-01-21] MEDS: ASPIRIN 81 MG TABLET CHEW PO SCH (05:20)
[2017-01-21] MEDS: METOPROLOL TARTRATE 25 MG TABLET PO SCH ×2 (05:20→17:15)
[2017-01-21] MEDS: INSULIN ASPART 100 UNITS/ML, PEN SQ-INSULIN SCH ×4 (07:00→21:00)
[2017-01-21 08:07] VITALS: BP 110/70
[2017-01-21] MEDS: LOSARTAN 25MG TABLET PO SCH (09:00)
[2017-01-21] MEDS: SODIUM CHLORIDE FLUSH 10ML SYR IVF SCH ×2 (09:00→21:30)
[2017-01-21] MEDS: FAMOTIDINE 20 MG/2 ML IVPush SCH ×2 (09:07→21:30)
[2017-01-21] MEDS: ALBUMIN HUMAN 25% 50 ML IV SCH (09:07)
[2017-01-21] MEDS: GABAPENTIN 300 MG CAPSULE PO SCH ×3 (09:08→21:30)
[2017-01-21] MEDS: DEXTROSE 5% 1,000 ML IV SCH (10:36)
[2017-01-21 13:11] VITALS: BP 100/61
[2017-01-21] MEDS ORDERED: POTASSIUM CHLORIDE 40 MEQ in SODIUM CHLORIDE 0.9% 500 ML IV ONE (17:30)
[2017-01-21 20:31] VITALS: BP 110/5
[2017-01-21] MEDS: MICAFUNGIN 100 MG in SODIUM CHLORIDE 0.9% 100 ML IV SCH (21:30)
[2017-01-21] MEDS: ENOXAPARIN 40 MG/0.4 ML SQ SCH (21:30)
[2017-01-21 23:02] LABS: OCCBLD OBC PASS
[2017-01-22 01:30] VITALS: BP 102/74
[2017-01-22] MEDS: OXYcodone IR 5MG TABLET PO PRN (03:02)
[2017-01-22] MEDS: PIPERACILLIN/TAZO/PMX 3.375GM 50 ML IV SCH ×4 (05:27→23:50)
[2017-01-22] MEDS: METOPROLOL TARTRATE 25 MG TABLET PO SCH ×2 (05:27→17:47)
[2017-01-22] MEDS: NYSTATIN 500,000 UNITS/5 ML UDC PO SCH ×4 (05:27→20:33)
[2017-01-22] MEDS: ASPIRIN 81 MG TABLET CHEW PO SCH (05:27)
[2017-01-22 06:15] LABS: BLOOD UREA NITROGEN 14 mg/dL (7-18)
[2017-01-22] MEDS: INSULIN ASPART 100 UNITS/ML, PEN SQ-INSULIN SCH ×4 (07:00→20:34)
[2017-01-22 07:06] VITALS: BP 110/77
[2017-01-22] MEDS: SODIUM CHLORIDE FLUSH 10ML SYR IVF SCH ×2 (08:55→20:33)
[2017-01-22] MEDS: LOSARTAN 25MG TABLET PO SCH (09:00)
[2017-01-22] MEDS: GABAPENTIN 300 MG CAPSULE PO SCH ×3 (09:17→20:33)
[2017-01-22] MEDS: FAMOTIDINE 20 MG/2 ML IVPush SCH ×2 (09:17→20:33)
[2017-01-22] MEDS: VANCOMYCIN 1,200 MG in SODIUM CHLORIDE 0.9% 250 ML IV SCH (09:19)
[2017-01-22] MEDS: ALBUMIN HUMAN 25% 50 ML IV SCH (09:19)
[2017-01-22 13:31] VITALS: BP 113/76
[2017-01-22 19:03] VITALS: BP 141/95
[2017-01-22] MEDS: ENOXAPARIN 40 MG/0.4 ML SQ SCH (20:33)
[2017-01-22] MEDS: MICAFUNGIN 100 MG in SODIUM CHLORIDE 0.9% 100 ML IV SCH (20:34)
[2017-01-23] VITALS (10 sets, daily range): BP systolic 109–149; BP diastolic 62–102
[2017-01-23] MEDS: PIPERACILLIN/TAZO/PMX 3.375GM 50 ML IV SCH ×4 (04:55→23:45)
[2017-01-23] MEDS: NYSTATIN 500,000 UNITS/5 ML UDC PO SCH ×4 (04:55→20:45)
[2017-01-23] MEDS: ASPIRIN 81 MG TABLET CHEW PO SCH (04:55)
[2017-01-23] MEDS: METOPROLOL TARTRATE 25 MG TABLET PO SCH ×2 (04:55→18:06)
[2017-01-23 05:59] LABS: BLOOD UREA NITROGEN 12 mg/dL (7-18)
[2017-01-23] MEDS: INSULIN ASPART 100 UNITS/ML, PEN SQ-INSULIN SCH ×4 (09:00→20:45)
[2017-01-23] MEDS ORDERED: FUROSEMIDE 20 MG/2 ML IV ONE (09:30)
[2017-01-23] MEDS ORDERED: POTASSIUM CHLORIDE 20 MEQ TAB.ER.PRT PO SCH (09:30)
[2017-01-23] MEDS: ALBUMIN HUMAN 25% 50 ML IV SCH (10:45)
[2017-01-23] MEDS: SODIUM CHLORIDE FLUSH 10ML SYR IVF SCH ×2 (10:45→20:45)
[2017-01-23] MEDS: GABAPENTIN 300 MG CAPSULE PO SCH ×3 (10:47→20:45)
[2017-01-23] MEDS: FAMOTIDINE 20 MG/2 ML IVPush SCH ×2 (10:47→20:45)
[2017-01-23] MEDS: LOSARTAN 25MG TABLET PO SCH (10:47)
[2017-01-23] MEDS: POTASSIUM CHLORIDE 20 MEQ TAB.ER.PRT PO SCH ×3 (14:00→17:59)
[2017-01-23] MEDS: VANCOMYCIN 1,200 MG in SODIUM CHLORIDE 0.9% 250 ML IV SCH (20:03)
[2017-01-23] MEDS: ENOXAPARIN 40 MG/0.4 ML SQ SCH (20:45)
[2017-01-23] MEDS: MICAFUNGIN 100 MG in SODIUM CHLORIDE 0.9% 100 ML IV SCH (22:15)
[2017-01-24 02:05] VITALS: BP 117/73
[2017-01-24] MEDS: NYSTATIN 500,000 UNITS/5 ML UDC PO SCH ×5 (05:39→20:54)
[2017-01-24] MEDS: METOPROLOL TARTRATE 25 MG TABLET PO SCH ×2 (05:39→18:08)
[2017-01-24] MEDS: PIPERACILLIN/TAZO/PMX 3.375GM 50 ML IV SCH ×4 (05:39→23:07)
[2017-01-24] MEDS: ASPIRIN 81 MG TABLET CHEW PO SCH (05:39)
[2017-01-24 06:47] LABS: BLOOD UREA NITROGEN 12 mg/dL (7-18)
[2017-01-24 06:57] VITALS: BP 137/98
[2017-01-24] MEDS: INSULIN ASPART 100 UNITS/ML, PEN SQ-INSULIN SCH ×4 (07:00→21:00)
[2017-01-24 07:41] LABS: DIFF TOTAL CELLS COUNTED 100 CELL DIFF
[2017-01-24 08:27] LABS: ANISOCYTOSIS 1+; VERIFY COUNTS? YES
[2017-01-24] MEDS: ALBUMIN HUMAN 25% 50 ML IV SCH (09:28)
[2017-01-24] MEDS: FAMOTIDINE 20 MG/2 ML IVPush SCH ×2 (09:28→20:54)
[2017-01-24] MEDS: LOSARTAN 25MG TABLET PO SCH (09:28)
[2017-01-24] MEDS: SODIUM CHLORIDE FLUSH 10ML SYR IVF SCH ×2 (09:28→20:54)
[2017-01-24] MEDS: GABAPENTIN 300 MG CAPSULE PO SCH ×3 (09:28→20:53)
[2017-01-24 12:07] LABS: ASPARTATE AMINO TRANSFERASE 26 U/L (15-37); BLOOD UREA NITROGEN 11 mg/dL (7-18)
[2017-01-24] MEDS: DEXTROSE 5% 1,000 ML IV SCH ×2 (12:39→21:30)
[2017-01-24] MEDS: OXYcodone IR 5MG TABLET PO PRN (13:17)
[2017-01-24] MEDS ORDERED: VANCOMYCIN PER PHARMACY MC PRN (13:30)
[2017-01-24 13:43] VITALS: BP 124/85
[2017-01-24 19:53] VITALS: BP 137/91
[2017-01-24] MEDS: ENOXAPARIN 40 MG/0.4 ML SQ SCH (20:53)
[2017-01-24] MEDS: MICAFUNGIN 100 MG in SODIUM CHLORIDE 0.9% 100 ML IV SCH (20:54)
[2017-01-25] MEDS: OXYcodone IR 5MG TABLET PO PRN (01:18)
[2017-01-25 01:38] VITALS: BP 135/87
[2017-01-25] MEDS ORDERED: ENOXAPARIN 40 MG/0.4 ML SQ ONE (04:00)
[2017-01-25] MEDS: PIPERACILLIN/TAZO/PMX 3.375GM 50 ML IV SCH ×3 (04:44→18:30)
[2017-01-25 04:59] LABS: BLOOD UREA NITROGEN 11 mg/dL (7-18)
[2017-01-25] MEDS: METOPROLOL TARTRATE 25 MG TABLET PO SCH (06:00)
[2017-01-25] MEDS: ASPIRIN 81 MG TABLET CHEW PO SCH (06:00)
[2017-01-25] MEDS: LOSARTAN 25MG TABLET PO SCH (09:07)
[2017-01-25] MEDS: VANCOMYCIN 1,200 MG in SODIUM CHLORIDE 0.9% 250 ML IV SCH (13:00)
[2017-01-25] MEDS: ENOXAPARIN 80 MG/0.8 ML SQ SCH (15:35)
[2017-01-25] MEDS ORDERED: OMNIPAQUE 350 MG/ML, 100ML BOTTLE ONE (17:00)
[2017-01-25] MEDS: MICAFUNGIN 100 MG in SODIUM CHLORIDE 0.9% 100 ML IV SCH (22:50)
[2017-01-26] MEDS: PIPERACILLIN/TAZO/PMX 3.375GM 50 ML IV SCH ×4 (00:45→17:55)
[2017-01-26] MEDS: ENOXAPARIN 80 MG/0.8 ML SQ SCH ×2 (03:00→20:43)
[2017-01-26] MEDS: ASPIRIN 81 MG TABLET CHEW PO SCH (05:50)
[2017-01-26] MEDS: METOPROLOL TARTRATE 25 MG TABLET PO SCH ×2 (05:50→20:44)
[2017-01-26] MEDS ORDERED: POTASSIUM CHLORIDE 20 MEQ PACKET PO SCH (09:00)
[2017-01-26] MEDS: LOSARTAN 25MG TABLET PO SCH (10:01)
[2017-01-26 13:15] VITALS: BP 139/101
[2017-01-26 15:05] VITALS: BP 121/76
[2017-01-26 20:28] VITALS: BP 133/94
[2017-01-26] MEDS: FAMOTIDINE 20 MG/2 ML IVPush SCH (20:42)
[2017-01-26] MEDS: GABAPENTIN 300 MG CAPSULE PO SCH (20:42)
[2017-01-26] MEDS: SODIUM CHLORIDE FLUSH 10ML SYR IVF SCH (20:43)
[2017-01-26] MEDS: INSULIN ASPART 100 UNITS/ML, PEN SQ-INSULIN SCH (21:25)
[2017-01-26] MEDS: NYSTATIN 500,000 UNITS/5 ML UDC PO SCH (22:36)
[2017-01-26] MEDS: OXYcodone IR 5MG TABLET PO PRN (22:37)
[2017-01-26] MEDS: ALBUMIN HUMAN 25% 50 ML IV SCH (22:37)
[2017-01-26] MEDS: DEXTROSE 5% 1,000 ML IV SCH (23:30)
[2017-01-27] MEDS: MICAFUNGIN 100 MG in SODIUM CHLORIDE 0.9% 100 ML IV SCH (00:02)
[2017-01-27] MEDS: PIPERACILLIN/TAZO/PMX 3.375GM 50 ML IV SCH ×2 (01:05→06:44)
[2017-01-27] MEDS: VANCOMYCIN 1,200 MG in SODIUM CHLORIDE 0.9% 250 ML IV SCH (01:46)
[2017-01-27] MEDS ORDERED: LOPERAMIDE 2 MG CAPSULE PO ONE (02:00)
[2017-01-27 02:04] VITALS: BP 131/90
[2017-01-27] MEDS ORDERED: LOPERAMIDE 2 MG CAPSULE PO PRN (06:00)
[2017-01-27 06:37] LABS: BLOOD UREA NITROGEN 11 mg/dL (7-18)
[2017-01-27] MEDS: METOPROLOL TARTRATE 25 MG TABLET PO SCH ×2 (06:43→18:25)
[2017-01-27] MEDS: ASPIRIN 81 MG TABLET CHEW PO SCH (06:43)
[2017-01-27] MEDS: NYSTATIN 500,000 UNITS/5 ML UDC PO SCH ×4 (06:44→21:53)
[2017-01-27 07:25] VITALS: BP 152/102
[2017-01-27] MEDS: INSULIN ASPART 100 UNITS/ML, PEN SQ-INSULIN SCH ×4 (08:10→21:00)
[2017-01-27] MEDS: ENOXAPARIN 80 MG/0.8 ML SQ SCH ×2 (09:15→21:54)
[2017-01-27] MEDS: ALBUMIN HUMAN 25% 50 ML IV SCH (09:16)
[2017-01-27] MEDS: FAMOTIDINE 20 MG/2 ML IVPush SCH ×2 (09:17→21:53)
[2017-01-27] MEDS: SODIUM CHLORIDE FLUSH 10ML SYR IVF SCH ×2 (09:17→21:54)
[2017-01-27] MEDS: GABAPENTIN 300 MG CAPSULE PO SCH ×3 (09:18→21:53)
[2017-01-27] MEDS: DEXTROSE 5% 1,000 ML IV SCH ×2 (09:18→18:25)
[2017-01-27] MEDS: LOSARTAN 25MG TABLET PO SCH (09:18)
[2017-01-27] MEDS ORDERED: POTASSIUM CHLORIDE 80 MEQ in SODIUM CHLORIDE 0.9% 1,000 ML IV ONE (10:30)
[2017-01-27] MEDS: OXYcodone IR 5MG TABLET PO PRN ×2 (11:50→22:43)
[2017-01-27 13:00] VITALS: BP 155/99
[2017-01-27 20:00] VITALS: BP 142/96
[2017-01-27 20:28] LABS: BLOOD UREA NITROGEN 11 mg/dL (7-18)
[2017-01-28 00:50] VITALS: BP 134/93
[2017-01-28] MEDS: DEXTROSE 5% 1,000 ML IV SCH (05:30)
[2017-01-28] MEDS: ASPIRIN 81 MG TABLET CHEW PO SCH (05:40)
[2017-01-28] MEDS: METOPROLOL TARTRATE 25 MG TABLET PO SCH ×2 (05:41→17:08)
[2017-01-28] MEDS: OXYcodone IR 5MG TABLET PO PRN ×4 (05:44→23:41)
[2017-01-28] MEDS: INSULIN ASPART 100 UNITS/ML, PEN SQ-INSULIN SCH ×4 (07:00→21:00)
[2017-01-28 07:13] LABS: BLOOD UREA NITROGEN 11 mg/dL (7-18)
[2017-01-28 07:50] VITALS: BP 113/77
[2017-01-28] MEDS: ENOXAPARIN 80 MG/0.8 ML SQ SCH ×2 (09:09→20:00)
[2017-01-28] MEDS: ALBUMIN HUMAN 25% 50 ML IV SCH (09:09)
[2017-01-28] MEDS: FAMOTIDINE 20 MG/2 ML IVPush SCH ×2 (09:09→21:00)
[2017-01-28] MEDS: SODIUM CHLORIDE FLUSH 10ML SYR IVF SCH ×2 (09:10→21:00)
[2017-01-28] MEDS: NYSTATIN 500,000 UNITS/5 ML UDC PO SCH ×5 (09:18→21:00)
[2017-01-28] MEDS: CITALOPRAM 20 MG TABLET PO SCH (09:18)
[2017-01-28] MEDS: LOSARTAN 25MG TABLET PO SCH (09:18)
[2017-01-28] MEDS: GABAPENTIN 300 MG CAPSULE PO SCH ×3 (09:18→21:00)
[2017-01-28 10:28] LABS: BLOOD UREA NITROGEN 11 mg/dL (7-18)
[2017-01-28 14:00] VITALS: BP 149/92
[2017-01-28] MEDS ORDERED: SODIUM BICARBONATE 4.2%, 5ML ONE (14:57)
[2017-01-28] MEDS ORDERED: LIDOCAINE 1%, 20ML ONE (14:57)
[2017-01-28 16:05] LABS: CYTOLOGY BODY FLUID RECD INTO PATHOLOGY; CYTOLOGY BODY FLUID SOURCE PLEURAL FLUID
[2017-01-28] MEDS: POTASSIUM CHLORIDE 40 MEQ in SODIUM CHLORIDE 0.9% 500 ML IV SCH ×2 (16:19→23:41)
[2017-01-28 20:00] VITALS: BP 109/72
[2017-01-29] VITALS (11 sets, daily range): BP systolic 123–165; BP diastolic 86–103
[2017-01-29] MEDS ORDERED: CATHFLO-ALTEPLASE 2 MG/2 ML CATHFLUSH ONE (04:00)
[2017-01-29] MEDS: ASPIRIN 81 MG TABLET CHEW PO SCH (05:42)
[2017-01-29] MEDS: METOPROLOL TARTRATE 25 MG TABLET PO SCH ×2 (05:42→18:17)
[2017-01-29] MEDS: NYSTATIN 500,000 UNITS/5 ML UDC PO SCH ×4 (05:42→21:09)
[2017-01-29 06:07] LABS: BLOOD UREA NITROGEN 11 mg/dL (7-18)
[2017-01-29] MEDS: POTASSIUM CHLORIDE 40 MEQ in SODIUM CHLORIDE 0.9% 500 ML IV SCH (06:18)
[2017-01-29 06:35] LABS: DIFF TOTAL CELLS COUNTED 100 CELL DIFF
[2017-01-29 06:38] LABS: VERIFY COUNTS? YES
[2017-01-29] MEDS: OXYcodone IR 5MG TABLET PO PRN ×4 (06:45→23:06)
[2017-01-29] MEDS: INSULIN ASPART 100 UNITS/ML, PEN SQ-INSULIN SCH ×4 (07:00→21:00)
[2017-01-29] MEDS: LOSARTAN 25MG TABLET PO SCH (09:07)
[2017-01-29] MEDS: ENOXAPARIN 80 MG/0.8 ML SQ SCH ×2 (09:07→21:09)
[2017-01-29] MEDS: FAMOTIDINE 20 MG/2 ML IVPush SCH ×2 (09:07→21:09)
[2017-01-29] MEDS: GABAPENTIN 300 MG CAPSULE PO SCH ×3 (09:07→21:08)
[2017-01-29] MEDS: CITALOPRAM 20 MG TABLET PO SCH (09:07)
[2017-01-29] MEDS: SODIUM CHLORIDE FLUSH 10ML SYR IVF SCH ×2 (09:07→21:00)
[2017-01-29] MEDS: ALBUMIN HUMAN 25% 50 ML IV SCH (09:07)
[2017-01-29] MEDS ORDERED: FUROSEMIDE 40 MG/4 ML IV ONE (12:00)
[2017-01-30 00:46] VITALS: BP 105/69
[2017-01-30 05:53] LABS: BLOOD UREA NITROGEN 13 mg/dL (7-18)
[2017-01-30 05:55] VITALS: BP 118/80
[2017-01-30] MEDS: NYSTATIN 500,000 UNITS/5 ML UDC PO SCH ×4 (05:57→22:19)
[2017-01-30] MEDS: ASPIRIN 81 MG TABLET CHEW PO SCH (05:57)
[2017-01-30] MEDS: METOPROLOL TARTRATE 25 MG TABLET PO SCH ×2 (05:57→17:24)
[2017-01-30 06:35] VITALS: BP 117/79
[2017-01-30] MEDS: INSULIN ASPART 100 UNITS/ML, PEN SQ-INSULIN SCH ×4 (07:00→21:00)
[2017-01-30] MEDS: SODIUM CHLORIDE FLUSH 10ML SYR IVF SCH ×2 (09:00→22:19)
[2017-01-30] MEDS: GABAPENTIN 300 MG CAPSULE PO SCH ×3 (09:02→22:19)
[2017-01-30] MEDS: LOSARTAN 25MG TABLET PO SCH (09:02)
[2017-01-30] MEDS: CITALOPRAM 20 MG TABLET PO SCH (09:02)
[2017-01-30] MEDS: FAMOTIDINE 20 MG/2 ML IVPush SCH ×2 (09:03→22:19)
[2017-01-30] MEDS: ENOXAPARIN 80 MG/0.8 ML SQ SCH ×2 (09:09→22:20)
[2017-01-30] MEDS: ALBUMIN HUMAN 25% 50 ML IV SCH (09:11)
[2017-01-30] MEDS: DEXTROSE 5% 1,000 ML IV SCH ×2 (11:27→22:17)
[2017-01-30 12:30] VITALS: BP 117/76
[2017-01-30 20:14] VITALS: BP 100/67
[2017-01-31 00:29] VITALS: BP 104/68
[2017-01-31] MEDS: METOPROLOL TARTRATE 25 MG TABLET PO SCH ×2 (05:15→17:56)
[2017-01-31] MEDS: ASPIRIN 81 MG TABLET CHEW PO SCH (05:15)
[2017-01-31] MEDS: NYSTATIN 500,000 UNITS/5 ML UDC PO SCH ×4 (05:15→20:17)
[2017-01-31 05:18] VITALS: BP 113/73
[2017-01-31 06:01] LABS: BLOOD UREA NITROGEN 12 mg/dL (7-18)
[2017-01-31 07:00] VITALS: BP 118/78
[2017-01-31] MEDS: INSULIN ASPART 100 UNITS/ML, PEN SQ-INSULIN SCH ×4 (07:00→20:19)
[2017-01-31] MEDS ORDERED: POTASSIUM CHLORIDE 40 MEQ in SODIUM CHLORIDE 0.9% 500 ML IV SCH (09:00)
[2017-01-31] MEDS: SODIUM CHLORIDE FLUSH 10ML SYR IVF SCH ×2 (09:16→20:19)
[2017-01-31] MEDS: ALBUMIN HUMAN 25% 50 ML IV SCH (09:16)
[2017-01-31] MEDS: ENOXAPARIN 80 MG/0.8 ML SQ SCH ×2 (09:17→20:18)
[2017-01-31] MEDS: CITALOPRAM 20 MG TABLET PO SCH (09:17)
[2017-01-31] MEDS: FAMOTIDINE 20 MG/2 ML IVPush SCH ×2 (09:17→20:18)
[2017-01-31] MEDS: LOSARTAN 25MG TABLET PO SCH (09:17)
[2017-01-31] MEDS: GABAPENTIN 300 MG CAPSULE PO SCH ×3 (09:17→20:18)
[2017-01-31] MEDS: DEXTROSE 5% 1,000 ML IV SCH (09:29)
[2017-01-31] MEDS ORDERED: POTASSIUM CHLORIDE 20 MEQ PACKET PO SCH (12:00)
[2017-01-31] MEDS: POTASSIUM CHLORIDE 10% 40 MEQ/30 ML UDC PO SCH ×3 (12:19→16:28)
[2017-01-31] MEDS ORDERED: GLUCAGON 1 MG IM PRN ×2 (12:30→20:00)
[2017-01-31] MEDS ORDERED: CYCLOBENZAPRINE 10 MG TABLET PO PRN (12:30)
[2017-01-31 13:00] VITALS: BP 139/89
[2017-01-31] MEDS ORDERED: MAGNESIUM SULFATE PMX 4GM/100M 100 ML IV ONE (13:00)
[2017-01-31] MEDS ORDERED: SODIUM CHLORIDE 0.45% 1,000 ML IV ONE (16:30)
[2017-01-31 19:25] VITALS: BP 121/81
[2017-01-31] MEDS ORDERED: DEXTROSE 50%, 50ML SYRINGE IVPush PRN (20:00)
[2017-01-31] MEDS ORDERED: LOPERAMIDE 2 MG CAPSULE PO PRN (20:00)
[2017-01-31] MEDS ORDERED: SODIUM CHLORIDE FLUSH 10ML SYR IVF SCH (21:00)
[2017-02-01 03:37] VITALS: BP 115/79
[2017-02-01 04:55] VITALS: BP 124/85
[2017-02-01] MEDS: ASPIRIN 81 MG TABLET CHEW PO SCH (04:55)
[2017-02-01] MEDS: METOPROLOL TARTRATE 25 MG TABLET PO SCH ×2 (04:55→16:49)
[2017-02-01] MEDS: NYSTATIN 500,000 UNITS/5 ML UDC PO SCH ×4 (04:55→20:29)
[2017-02-01 05:46] LABS: BLOOD UREA NITROGEN 9 mg/dL (7-18)
[2017-02-01] MEDS: INSULIN ASPART 100 UNITS/ML, PEN SQ-INSULIN SCH ×4 (07:00→20:23)
[2017-02-01 07:15] VITALS: BP 119/81
[2017-02-01] MEDS ORDERED: ONDANSETRON 4 MG TABLET PO PRN (08:00)
[2017-02-01] MEDS: LOSARTAN 25MG TABLET PO SCH (09:00)
[2017-02-01] MEDS: SODIUM CHLORIDE FLUSH 10ML SYR IVF SCH ×2 (10:44→20:28)
[2017-02-01] MEDS: CITALOPRAM 20 MG TABLET PO SCH (10:44)
[2017-02-01] MEDS: ALBUMIN HUMAN 25% 50 ML IV SCH (10:44)
[2017-02-01] MEDS: FAMOTIDINE 20 MG/2 ML IVPush SCH ×2 (10:44→20:28)
[2017-02-01] MEDS: GABAPENTIN 300 MG CAPSULE PO SCH ×3 (10:44→20:28)
[2017-02-01] MEDS: ENOXAPARIN 80 MG/0.8 ML SQ SCH ×2 (10:45→20:28)
[2017-02-01 14:21] VITALS: BP 124/88
[2017-02-01 19:03] VITALS: BP 94/61
[2017-02-01] MEDS: OXYcodone IR 5MG TABLET PO PRN (20:29)
[2017-02-02 03:00] VITALS: BP 98/69
[2017-02-02] MEDS: METOPROLOL TARTRATE 25 MG TABLET PO SCH ×2 (04:54→16:25)
[2017-02-02 05:00] LABS: BLOOD UREA NITROGEN 8 mg/dL (7-18)
[2017-02-02] MEDS: ASPIRIN 81 MG TABLET CHEW PO SCH (05:10)
[2017-02-02] MEDS: NYSTATIN 500,000 UNITS/5 ML UDC PO SCH ×4 (05:10→20:41)
[2017-02-02 06:30] VITALS: BP 132/73
[2017-02-02 06:50] VITALS: BP 94/66
[2017-02-02] MEDS: INSULIN ASPART 100 UNITS/ML, PEN SQ-INSULIN SCH ×4 (07:00→20:42)
[2017-02-02] MEDS: ALBUMIN HUMAN 25% 50 ML IV SCH (08:27)
[2017-02-02] MEDS: SODIUM CHLORIDE FLUSH 10ML SYR IVF SCH ×2 (08:27→20:41)
[2017-02-02] MEDS: FAMOTIDINE 20 MG/2 ML IVPush SCH (08:27)
[2017-02-02] MEDS: CITALOPRAM 20 MG TABLET PO SCH (08:28)
[2017-02-02] MEDS: ENOXAPARIN 80 MG/0.8 ML SQ SCH ×2 (08:28→20:42)
[2017-02-02] MEDS: LOSARTAN 25MG TABLET PO SCH (08:28)
[2017-02-02] MEDS: GABAPENTIN 300 MG CAPSULE PO SCH ×3 (08:28→20:41)
[2017-02-02 15:17] VITALS: BP 111/75
[2017-02-02 19:07] VITALS: BP 89/62
[2017-02-02 19:18] VITALS: BP 92/62
[2017-02-02] MEDS: FAMOTIDINE 20 MG TABLET PO SCH (20:41)
[2017-02-03 01:22] VITALS: BP 106/70
[2017-02-03 04:58] LABS: BLOOD UREA NITROGEN 8 mg/dL (7-18)
[2017-02-03] MEDS: METOPROLOL TARTRATE 25 MG TABLET PO SCH ×2 (06:00→17:18)
[2017-02-03] MEDS: ASPIRIN 81 MG TABLET CHEW PO SCH (06:17)
[2017-02-03] MEDS: NYSTATIN 500,000 UNITS/5 ML UDC PO SCH ×4 (06:17→21:01)
[2017-02-03] MEDS: INSULIN ASPART 100 UNITS/ML, PEN SQ-INSULIN SCH ×4 (07:00→20:49)
[2017-02-03 08:00] VITALS: BP 113/79
[2017-02-03] MEDS: GABAPENTIN 300 MG CAPSULE PO SCH ×3 (08:16→21:01)
[2017-02-03] MEDS: FAMOTIDINE 20 MG TABLET PO SCH ×2 (08:16→21:01)
[2017-02-03] MEDS: CITALOPRAM 20 MG TABLET PO SCH (08:16)
[2017-02-03] MEDS: LOSARTAN 25MG TABLET PO SCH (08:16)
[2017-02-03] MEDS: ENOXAPARIN 80 MG/0.8 ML SQ SCH ×2 (08:17→21:01)
[2017-02-03] MEDS: SODIUM CHLORIDE FLUSH 10ML SYR IVF SCH ×2 (08:17→21:00)
[2017-02-03] MEDS: ALBUMIN HUMAN 25% 50 ML IV SCH (09:57)
[2017-02-03] MEDS: SODIUM CHLORIDE 0.45% 1,000 ML IV SCH ×2 (12:00→21:02)
[2017-02-03] MEDS: POTASSIUM CHLORIDE 20 MEQ TAB.ER.PRT PO SCH ×3 (13:00→18:15)
[2017-02-03 13:20] VITALS: BP 105/75
[2017-02-03] MEDS: OXYcodone IR 5MG TABLET PO PRN (17:18)
[2017-02-03 19:08] VITALS: BP 94/68
[2017-02-04 00:20] VITALS: BP 104/62
[2017-02-04 05:16] LABS: BLOOD UREA NITROGEN 7 mg/dL (7-18)
[2017-02-04] MEDS: METOPROLOL TARTRATE 25 MG TABLET PO SCH (06:00)
[2017-02-04] MEDS: ASPIRIN 81 MG TABLET CHEW PO SCH (06:22)
[2017-02-04] MEDS: NYSTATIN 500,000 UNITS/5 ML UDC PO SCH ×3 (06:22→13:50)
[2017-02-04 06:27] VITALS: BP 107/71
[2017-02-04] MEDS: INSULIN ASPART 100 UNITS/ML, PEN SQ-INSULIN SCH ×2 (07:00→11:00)
[2017-02-04 07:35] VITALS: BP 107/71
[2017-02-04] MEDS: SODIUM CHLORIDE 0.45% 1,000 ML IV SCH (08:00)
[2017-02-04] MEDS: SODIUM CHLORIDE FLUSH 10ML SYR IVF SCH (08:55)
[2017-02-04] MEDS ORDERED: OXYC5TAB3 PO (09:22)
[2017-02-04] MEDS ORDERED: ONDA-39 PO (09:22)
[2017-02-04] MEDS ORDERED: ASPI-515 PO (09:22)
[2017-02-04] MEDS ORDERED: CITA20TA9 PO (09:22)
[2017-02-04] MEDS ORDERED: FAMO20TA7 PO (09:22)
[2017-02-04] MEDS ORDERED: METO25TA35 PO (09:22)
[2017-02-04] MEDS ORDERED: ALPR0.254 PO (09:22)
[2017-02-04] MEDS ORDERED: SIMV20TA PO (09:46)
[2017-02-04] MEDS: GABAPENTIN 300 MG CAPSULE PO SCH ×2 (12:03→13:49)
[2017-02-04] MEDS: ALBUMIN HUMAN 25% 50 ML IV SCH (12:03)
[2017-02-04] MEDS: FAMOTIDINE 20 MG TABLET PO SCH (12:04)
[2017-02-04] MEDS: CITALOPRAM 20 MG TABLET PO SCH (12:04)
[2017-02-04] MEDS: ENOXAPARIN 80 MG/0.8 ML SQ SCH (12:05)
[2017-02-04] MEDS: LOSARTAN 25MG TABLET PO SCH (12:06)
[2017-02-04 12:46] VITALS: BP 116/76
[2017-02-04] MEDS ORDERED: RIVA15TA PO (16:57)
[2017-02-04] MEDS ORDERED: RIVA20TA PO (16:57)
== END 2017-02-04 17:18 | DRG 871 ==
LOC: ED 18:25 → EDIP 18:26 → ED 18:32 → CCU 20:45 → 4NOR 01-02 10:51 → CCU 01-03 13:12 → 4WST 01-06 10:40 → ICU 01-08 19:05 → CCU 01-10 03:07 → 4WST 01-13 11:45 → 4EST 01-27 09:48 → 3NE 02-04 00:06
PROVIDERS: ADMIT Internal Medicine; ATTEND Internal Medicine
PROC: 0T9B70Z Drainage of Bladder with Drainage Device, Via Natural or Artificial Opening (ICD-10-PCS; principal; 2016-12-31)
PROC: 02HV33Z Insertion of Infusion Device into Superior Vena Cava, Percutaneous Approach (ICD-10-PCS; 2017-01-04)
PROC: B548ZZA Ultrasonography of Superior Vena Cava, Guidance (ICD-10-PCS; 2017-01-04)
PROC: 5A1945Z Respiratory Ventilation, 24-96 Consecutive Hours (ICD-10-PCS; 2017-01-08)
PROC: 0BH17EZ Insertion of Endotracheal Airway into Trachea, Via Natural or Artificial Opening (ICD-10-PCS; 2017-01-08)
PROC: B548ZZA Ultrasonography of Superior Vena Cava, Guidance (ICD-10-PCS; 2017-01-18)
PROC: 02HV33Z Insertion of Infusion Device into Superior Vena Cava, Percutaneous Approach (ICD-10-PCS; 2017-01-18)
PROC: B5181ZA Fluoroscopy of Superior Vena Cava using Low Osmolar Contrast, Guidance (ICD-10-PCS; 2017-01-18)
PROC: 30233N1 Transfusion of Nonautologous Red Blood Cells into Peripheral Vein, Percutaneous Approach (ICD-10-PCS; 2017-01-23)
PROC: 02HV33Z Insertion of Infusion Device into Superior Vena Cava, Percutaneous Approach (ICD-10-PCS; 2017-01-25)
PROC: B5181ZA Fluoroscopy of Superior Vena Cava using Low Osmolar Contrast, Guidance (ICD-10-PCS; 2017-01-25)
PROC: B548ZZA Ultrasonography of Superior Vena Cava, Guidance (ICD-10-PCS; 2017-01-25)
PROC: 0W993ZX Drainage of Right Pleural Cavity, Percutaneous Approach, Diagnostic (ICD-10-PCS; 2017-01-28)
PROC: 0W9B3ZX Drainage of Left Pleural Cavity, Percutaneous Approach, Diagnostic (ICD-10-PCS; 2017-01-28)
DX: A41.51 Sepsis due to Escherichia coli [E. coli] (principal); E13.10 Other specified diabetes mellitus with ketoacidosis without coma; E43 Unspecified severe protein-calorie malnutrition; K63.1 Perforation of intestine (nontraumatic); R65.21 Severe sepsis with septic shock; J96.01 Acute respiratory failure with hypoxia; J69.0 Pneumonitis due to inhalation of food and vomit; G93.40 Encephalopathy, unspecified; B37.0 Candidal stomatitis; E87.0 Hyperosmolality and hypernatremia; J90 Pleural effusion, not elsewhere classified; I24.8 Other forms of acute ischemic heart disease; I82.402 Acute embolism and thrombosis of unspecified deep veins of left lower extremity; L97.919 Non-pressure chronic ulcer of unspecified part of right lower leg with unspecified severity; N39.0 Urinary tract infection, site not specified; M48.56XA Collapsed vertebra, not elsewhere classified, lumbar region, initial encounter for fracture; Z99.11 Dependence on respirator [ventilator] status; D64.9 Anemia, unspecified; D75.89 Other specified diseases of blood and blood-forming organs; E78.5 Hyperlipidemia, unspecified; E87.6 Hypokalemia; E83.42 Hypomagnesemia; F41.9 Anxiety disorder, unspecified; G89.29 Other chronic pain; I10 Essential (primary) hypertension; E66.9 Obesity, unspecified; E86.0 Dehydration; I34.0 Nonrheumatic mitral (valve) insufficiency; M48.02 Spinal stenosis, cervical region; M48.04 Spinal stenosis, thoracic region; M48.06 Spinal stenosis, lumbar region; M81.0 Age-related osteoporosis without current pathological fracture; X58.XXXA Exposure to other specified factors, initial encounter; S81.812A Laceration without foreign body, left lower leg, initial encounter; Z79.01 Long term (current) use of anticoagulants; Z87.891 Personal history of nicotine dependence; Z68.20 Body mass index [BMI] 20.0-20.9, adult; Y93.89 Activity, other specified; Y92.89 Other specified places as the place of occurrence of the external cause
CPT/HCPCS: 32555; 36415; 36569; 36600; 70450; 70553; 71010; 71275; 72156; 72157; 72158; 74177; 74230; 76700; 76937; 77001; 80048; 80053; 80061; 80202; 80307; 81001; 82010; 82040; 82140; 82272; 82533; 82607; 82746; 82803; 82945; 82962; 83036; 83516; 83605; 83615; 83690; 83735; 83986; 84100; 84145; 84155; 84157; 84443; 84478; 84484; 85025; 85610; 85651; 85730; 86038; 86141; 86160; 86225; 86235; 86255; 86256; 86376; 86431; 86703; 86706; 86803; 86850; 86900; 86923; 87040; 87070; 87075; 87077; 87081; 87086; 87102; 87106; 87116; 87181; 87186; 87205; 87206; 87324; 87340; 87899; 88112; 89051; 93005; 93306; 93922; 94002; 94003; 94150; 96361; 96365; 96375; A9585; J0696; J1170; J1650; J1815; J1940; J2248; J2250; J2405; J2543; J2704; J2785; J2997; J3010; J3370; J3480; J3490; J7070; P9047; Q0162; Q9967; C1751; G0435; J0330; J2060; J2930; J3475; J7030; J7040; J7050; P9016; S0028

== ENCOUNTER 2017-02-12 16:09 | Inpatient (IN) | payer OTHER, BC ==
[~2017-02-12] VITALS: Ht 172.7 cm; Wt 73.2 kg
[~2017-02-12 16:09] MED LIST: ALPR0.254 PO; ASPI-515 PO; CITA20TA9 PO; FAMO20TA7 PO; GABA300C10 PO; LOSA25TA5 PO; METF10002 PO; METO25TA35 PO; ONDA-39 PO; OXYC5TAB3 PO; RIVA15TA PO; RIVA20TA PO; SIMV20TA PO
[2017-02-12] MEDS ORDERED: SODIUM CHLORIDE 0.9% 1,000ML IVBOLUS ONE ×2 (17:00→18:00)
[2017-02-12] MEDS ORDERED: PLEASE ENTER ALLERGIES MC SCH ×2 (17:00)
[2017-02-12] MEDS ORDERED: PLEASE ENTER HEIGHT AND WEIGHT MC SCH (17:00)
[2017-02-12 17:21] LABS: ASPARTATE AMINO TRANSFERASE 54 U/L (15-37); BLOOD UREA NITROGEN 14 mg/dL (7-18)
[2017-02-12] MEDS ORDERED: DOXYCYCLINE 100 MG in DEXTROSE 5% 250 ML IV SCH (18:30)
[2017-02-12] MEDS ORDERED: CEFTRIAXONE PMX 1GM/50ML 50 ML IV ONE (18:30)
[2017-02-12] MEDS ORDERED: SODIUM CHLORIDE 0.9%, 500ML IVBOLUS ONE (18:30)
[2017-02-12] MEDS ORDERED: RIVA15TA PO (20:08)
[2017-02-12] MEDS ORDERED: CEFTRIAXONE PMX 1GM/50ML 50 ML ONE (20:17)
[2017-02-12] MEDS ORDERED: FAMOTIDINE 20 MG TABLET PO SCH (21:00)
[2017-02-12] MEDS ORDERED: OXYcodone IR 5MG TABLET PO PRN (21:00)
[2017-02-12] MEDS ORDERED: BISACODYL 10 MG SUPP PR PRN (21:30)
[2017-02-12] MEDS ORDERED: DEXTROSE 4 GM TAB.CHEW PO PRN (21:30)
[2017-02-12] MEDS ORDERED: ONDANSETRON 2MG/ML, 2ML IVPush PRN (21:30)
[2017-02-12] MEDS ORDERED: DEXTROSE 50%, 50ML SYRINGE IVPush PRN (21:30)
[2017-02-12] MEDS ORDERED: POLYETHYLENE GLYCOL 17 GM PACKET PO PRN (21:30)
[2017-02-12] MEDS ORDERED: DOCUSATE 100 MG CAPSULE PO PRN (21:30)
[2017-02-12] MEDS ORDERED: ACETAMINOPHEN 325 MG TABLET PO PRN (21:30)
[2017-02-12] MEDS ORDERED: CEFTRIAXONE 1,000 MG in SODIUM CHLORIDE 0.9% 50 ML IV SCH (21:30)
[2017-02-12] MEDS ORDERED: GLUCAGON 1 MG IM PRN (21:30)
[2017-02-12] MEDS: DOXYCYCLINE 100 MG in DEXTROSE 5% 250 ML IV SCH (21:49)
[2017-02-12] MEDS: SODIUM CHLORIDE 0.9% 1,000 ML IV SCH (21:59)
[2017-02-12] MEDS: NOREPINEPHRINE 4 MG in SODIUM CHLORIDE 0.9% 246 ML IV PRN (22:49)
[2017-02-13] MEDS: GABAPENTIN 300 MG CAPSULE PO SCH ×4 (01:02→20:58)
[2017-02-13] MEDS: RIVAROXABAN 15 MG TABLET PO SCH ×3 (01:02→16:30)
[2017-02-13] MEDS ORDERED: SODIUM CHLORIDE INHALATION 7%, 4 ML NPPB STA (01:41)
[2017-02-13 04:00] VITALS: BP 112/70
[2017-02-13 05:18] LABS: ASPARTATE AMINO TRANSFERASE 51 U/L (15-37); BLOOD UREA NITROGEN 11 mg/dL (7-18)
[2017-02-13] MEDS: ASPIRIN 81 MG TABLET EC PO SCH (05:56)
[2017-02-13] MEDS: SODIUM CHLORIDE 0.9% 1,000 ML IV SCH ×2 (05:56→16:29)
[2017-02-13] MEDS ORDERED: METOPROLOL TARTRATE 25 MG TABLET PO SCH (06:00)
[2017-02-13] MEDS: INSULIN ASPART 100 UNITS/ML, PEN SQ-INSULIN SCH ×4 (07:00→21:00)
[2017-02-13] MEDS: DOXYCYCLINE 100 MG in DEXTROSE 5% 250 ML IV SCH ×4 (07:30→20:47)
[2017-02-13] MEDS ORDERED: POTASSIUM CHLORIDE 20 MEQ TAB.ER.PRT PO ONE (08:00)
[2017-02-13] MEDS ORDERED: MAGNESIUM SULFATE PMX 4GM/100M 100 ML IV ONE (08:00)
[2017-02-13] MEDS: SENNA/DOCUSATE TABLET PO SCH (09:00)
[2017-02-13] MEDS ORDERED: SODIUM CHLORIDE INHALATION 7%, 4 ML NPPB SCH (09:00)
[2017-02-13] MEDS ORDERED: LOSARTAN 25MG TABLET PO SCH (09:00)
[2017-02-13] MEDS: CITALOPRAM 20 MG TABLET PO SCH (09:32)
[2017-02-13] MEDS: SODIUM CHLORIDE FLUSH 10ML SYR IVF SCH ×2 (11:39→20:58)
[2017-02-13] MEDS: NOREPINEPHRINE 4 MG in SODIUM CHLORIDE 0.9% 246 ML IV PRN (12:01)
[2017-02-13] MEDS ORDERED: NOREPINEPHRINE 4 MG in SODIUM CHLORIDE 0.9% 246 ML IV PRN (22:00)
[2017-02-13] MEDS: CEFTRIAXONE PMX 1GM/50ML 50 ML IV SCH (22:03)
[2017-02-14] MEDS: SODIUM CHLORIDE 0.9% 1,000 ML IV SCH ×5 (00:01→20:31)
[2017-02-14 04:00] VITALS: BP 120/70
[2017-02-14] MEDS: SODIUM CHLORIDE INHALATION 7%, 4 ML NPPB SCH ×2 (04:54→09:00)
[2017-02-14 05:02] LABS: BLOOD UREA NITROGEN 7 mg/dL (7-18)
[2017-02-14] MEDS: ASPIRIN 81 MG TABLET EC PO SCH (05:36)
[2017-02-14] MEDS: INSULIN ASPART 100 UNITS/ML, PEN SQ-INSULIN SCH ×4 (07:00→20:32)
[2017-02-14] MEDS ORDERED: POTASSIUM CHLORIDE 20 MEQ TAB.ER.PRT PO ONE (07:00)
[2017-02-14] MEDS: DOXYCYCLINE 100 MG in DEXTROSE 5% 250 ML IV SCH ×2 (07:30→20:30)
[2017-02-14] MEDS: RIVAROXABAN 15 MG TABLET PO SCH ×2 (09:00→17:51)
[2017-02-14] MEDS: CITALOPRAM 20 MG TABLET PO SCH (09:00)
[2017-02-14] MEDS: SENNA/DOCUSATE TABLET PO SCH (09:00)
[2017-02-14] MEDS ORDERED: SODIUM CHLORIDE INHALATION 7%, 4 ML NPPB SCH (09:00)
[2017-02-14] MEDS: SODIUM CHLORIDE FLUSH 10ML SYR IVF SCH ×2 (09:00→20:31)
[2017-02-14] MEDS: GABAPENTIN 300 MG CAPSULE PO SCH ×3 (09:00→20:32)
[2017-02-14] MEDS: PROMETHAZINE 25 MG/ML, 1ML IM PRN (15:14)
[2017-02-14] MEDS: CEFTRIAXONE PMX 1GM/50ML 50 ML IV SCH (23:13)
[2017-02-15 04:00] VITALS: BP 106/70
[2017-02-15] MEDS: ASPIRIN 81 MG TABLET EC PO SCH (04:34)
[2017-02-15] MEDS: SODIUM CHLORIDE 0.9% 1,000 ML IV SCH (04:35)
[2017-02-15 06:05] LABS: BLOOD UREA NITROGEN 4 mg/dL (7-18)
[2017-02-15] MEDS: INSULIN ASPART 100 UNITS/ML, PEN SQ-INSULIN SCH ×4 (08:16→20:08)
[2017-02-15 08:39] VITALS: BP 112/66
[2017-02-15] MEDS: RIVAROXABAN 15 MG TABLET PO SCH ×2 (08:42→16:31)
[2017-02-15] MEDS: DOXYCYCLINE 100 MG in DEXTROSE 5% 250 ML IV SCH ×2 (08:42→20:08)
[2017-02-15] MEDS: GABAPENTIN 300 MG CAPSULE PO SCH ×3 (08:42→20:08)
[2017-02-15] MEDS: CITALOPRAM 20 MG TABLET PO SCH (08:42)
[2017-02-15] MEDS: SODIUM CHLORIDE FLUSH 10ML SYR IVF SCH ×2 (08:55→20:08)
[2017-02-15] MEDS: SENNA/DOCUSATE TABLET PO SCH (08:56)
[2017-02-15] MEDS: PROMETHAZINE 25 MG/ML, 1ML IM PRN (13:32)
[2017-02-15 14:25] VITALS: BP 127/84
[2017-02-15 20:10] VITALS: BP 127/84
[2017-02-15] MEDS: CEFTRIAXONE PMX 1GM/50ML 50 ML IV SCH (23:24)
[2017-02-16 02:00] VITALS: BP 134/92
[2017-02-16] MEDS: ASPIRIN 81 MG TABLET EC PO SCH (05:44)
[2017-02-16 06:40] LABS: ASPARTATE AMINO TRANSFERASE 66 U/L (15-37); BLOOD UREA NITROGEN 3 mg/dL (7-18)
[2017-02-16] MEDS: INSULIN ASPART 100 UNITS/ML, PEN SQ-INSULIN SCH ×4 (07:00→19:51)
[2017-02-16 07:53] VITALS: BP 114/84
[2017-02-16] MEDS: SENNA/DOCUSATE TABLET PO SCH (09:00)
[2017-02-16] MEDS ORDERED: RIFAMPIN 300 MG CAPSULE PO SCH (09:00)
[2017-02-16] MEDS ORDERED: ETHAMBUTOL 400 MG TABLET PO SCH (09:00)
[2017-02-16] MEDS: SODIUM CHLORIDE FLUSH 10ML SYR IVF SCH ×2 (09:00→19:51)
[2017-02-16] MEDS ORDERED: PYRAZINAMIDE 500 MG TABLET PO SCH (09:00)
[2017-02-16] MEDS ORDERED: ISONIAZID 300 MG TABLET PO SCH (09:00)
[2017-02-16] MEDS ORDERED: PYRIDOXINE 50MG TABLET PO SCH (09:00)
[2017-02-16] MEDS: DOXYCYCLINE 100 MG in DEXTROSE 5% 250 ML IV SCH ×2 (09:21→19:51)
[2017-02-16] MEDS: RIVAROXABAN 15 MG TABLET PO SCH ×2 (09:22→16:15)
[2017-02-16] MEDS: GABAPENTIN 300 MG CAPSULE PO SCH ×3 (09:22→19:50)
[2017-02-16] MEDS: CITALOPRAM 20 MG TABLET PO SCH (09:22)
[2017-02-16 12:41] VITALS: BP 117/83
[2017-02-16] MEDS ORDERED: FUROSEMIDE 40 MG/4 ML IV ONE (14:00)
[2017-02-16] MEDS ORDERED: POTASSIUM CHLORIDE 20 MEQ TAB.ER.PRT PO ONE (14:00)
[2017-02-16 18:43] VITALS: BP 113/83
[2017-02-16] MEDS: CEFTRIAXONE PMX 1GM/50ML 50 ML IV SCH (22:46)
[2017-02-17 00:45] VITALS: BP 106/73
[2017-02-17] MEDS: ASPIRIN 81 MG TABLET EC PO SCH (05:07)
[2017-02-17 05:57] LABS: BLOOD UREA NITROGEN 5 mg/dL (7-18)
[2017-02-17 06:01] LABS: ASPARTATE AMINO TRANSFERASE 57 U/L (15-37)
[2017-02-17] MEDS: INSULIN ASPART 100 UNITS/ML, PEN SQ-INSULIN SCH ×4 (07:00→22:08)
[2017-02-17] MEDS: RIVAROXABAN 15 MG TABLET PO SCH ×2 (07:53→16:35)
[2017-02-17] MEDS: DOXYCYCLINE 100 MG in DEXTROSE 5% 250 ML IV SCH ×2 (07:53→20:32)
[2017-02-17] MEDS: GABAPENTIN 300 MG CAPSULE PO SCH ×3 (07:54→21:28)
[2017-02-17] MEDS: SENNA/DOCUSATE TABLET PO SCH (07:54)
[2017-02-17] MEDS: CITALOPRAM 20 MG TABLET PO SCH (07:54)
[2017-02-17] MEDS: SODIUM CHLORIDE FLUSH 10ML SYR IVF SCH ×2 (07:54→21:28)
[2017-02-17 08:34] VITALS: BP 127/83
[2017-02-17] MEDS ORDERED: POTASSIUM CHLORIDE 20 MEQ TAB.ER.PRT PO ONE (09:00)
[2017-02-17] MEDS ORDERED: FUROSEMIDE 20 MG/2 ML IV ONE (09:00)
[2017-02-17 15:07] VITALS: BP 115/81
[2017-02-17 19:21] VITALS: BP 105/76
[2017-02-17] MEDS: AZITHROMYCIN 500 MG TABLET PO SCH (21:28)
[2017-02-17] MEDS: CEFTRIAXONE PMX 1GM/50ML 50 ML IV SCH (22:08)
[2017-02-18 02:47] VITALS: BP 107/74
[2017-02-18] MEDS: ASPIRIN 81 MG TABLET EC PO SCH (05:44)
[2017-02-18 06:48] LABS: BLOOD UREA NITROGEN 6 mg/dL (7-18)
[2017-02-18 07:00] VITALS: BP 101/65
[2017-02-18] MEDS: INSULIN ASPART 100 UNITS/ML, PEN SQ-INSULIN SCH ×4 (07:00→21:00)
[2017-02-18 07:10] LABS: HIV 1&2 ANTIBODY SCREEN Nonreactive (Nonreactive); HIV-1 p24 ANTIGEN Nonreactive (Nonreactive)
[2017-02-18] MEDS: DOXYCYCLINE 100 MG in DEXTROSE 5% 250 ML IV SCH (08:22)
[2017-02-18] MEDS: RIVAROXABAN 15 MG TABLET PO SCH ×2 (08:22→17:25)
[2017-02-18] MEDS: CITALOPRAM 20 MG TABLET PO SCH (08:22)
[2017-02-18] MEDS: SODIUM CHLORIDE FLUSH 10ML SYR IVF SCH ×2 (08:22→21:43)
[2017-02-18] MEDS: GABAPENTIN 300 MG CAPSULE PO SCH ×3 (08:22→21:43)
[2017-02-18] MEDS: SENNA/DOCUSATE TABLET PO SCH (08:23)
[2017-02-18 13:57] VITALS: BP 123/84
[2017-02-18] MEDS: PROMETHAZINE 25 MG/ML, 1ML IM PRN ×2 (15:56→21:43)
[2017-02-18 19:06] VITALS: BP 128/89
[2017-02-19 01:11] VITALS: BP 112/82
[2017-02-19 05:57] LABS: BLOOD UREA NITROGEN 5 mg/dL (7-18)
[2017-02-19 06:01] LABS: ASPARTATE AMINO TRANSFERASE 69 U/L (15-37)
[2017-02-19] MEDS: ASPIRIN 81 MG TABLET EC PO SCH (06:03)
[2017-02-19] MEDS: INSULIN ASPART 100 UNITS/ML, PEN SQ-INSULIN SCH ×4 (07:00→20:48)
[2017-02-19 07:31] VITALS: BP 112/78
[2017-02-19] MEDS: SENNA/DOCUSATE TABLET PO SCH (09:00)
[2017-02-19] MEDS ORDERED: ETHAMBUTOL 400 MG TABLET PO SCH (09:00)
[2017-02-19] MEDS: SODIUM CHLORIDE FLUSH 10ML SYR IVF SCH ×2 (09:00→20:54)
[2017-02-19] MEDS: GABAPENTIN 300 MG CAPSULE PO SCH ×3 (09:35→20:54)
[2017-02-19] MEDS: AZITHROMYCIN 500 MG TABLET PO SCH (09:35)
[2017-02-19] MEDS: CITALOPRAM 20 MG TABLET PO SCH (09:36)
[2017-02-19] MEDS: RIVAROXABAN 15 MG TABLET PO SCH ×2 (09:36→17:26)
[2017-02-19 13:57] VITALS: BP 119/86
[2017-02-19] MEDS: PROMETHAZINE 25 MG/ML, 1ML IM PRN (17:27)
[2017-02-19 18:59] VITALS: BP 123/85
[2017-02-20 00:06] LABS: ABSOLUTE CD 4 HELPER 494 /uL (359-1519); HEMATOCRIT 30.7 % (34.0-46.6); HEMOGLOBIN 9.5 g/dL (11.1-15.9); IMMATURE GRANULOCYTES 0 % (.); MCH 31.3 pg (26.6-33.0); MCHC 30.9 g/dL (31.5-35.7); MCV 101 fL (79-97); MONOCYTES 13 % (.); NEUTROPHILS 50 % (.); PLATELETS 221 x10E3/uL (150-379); RBC 3.04 x10E6/uL (3.77-5.28); WBC 4.8 x10E3/uL (3.4-10.8)
[2017-02-20 00:41] VITALS: BP 104/72
[2017-02-20] MEDS: ASPIRIN 81 MG TABLET EC PO SCH (05:46)
[2017-02-20] MEDS: INSULIN ASPART 100 UNITS/ML, PEN SQ-INSULIN SCH ×4 (07:00→20:51)
[2017-02-20] MEDS: SENNA/DOCUSATE TABLET PO SCH (08:14)
[2017-02-20] MEDS: SODIUM CHLORIDE FLUSH 10ML SYR IVF SCH ×2 (08:14→20:52)
[2017-02-20] MEDS: GABAPENTIN 300 MG CAPSULE PO SCH ×3 (08:14→20:52)
[2017-02-20] MEDS: CITALOPRAM 20 MG TABLET PO SCH (08:14)
[2017-02-20] MEDS: RIVAROXABAN 15 MG TABLET PO SCH ×2 (08:14→18:30)
[2017-02-20 08:30] VITALS: BP 120/85
[2017-02-20 14:30] VITALS: BP 116/80
[2017-02-20 20:42] VITALS: BP 108/76
[2017-02-21 03:27] VITALS: BP 95/63
[2017-02-21] MEDS: ASPIRIN 81 MG TABLET EC PO SCH (05:40)
[2017-02-21] MEDS: INSULIN ASPART 100 UNITS/ML, PEN SQ-INSULIN SCH ×4 (07:00→21:02)
[2017-02-21 07:33] VITALS: BP 121/81
[2017-02-21] MEDS: SENNA/DOCUSATE TABLET PO SCH (09:00)
[2017-02-21] MEDS: RIVAROXABAN 15 MG TABLET PO SCH ×2 (10:45→17:58)
[2017-02-21] MEDS: GABAPENTIN 300 MG CAPSULE PO SCH ×3 (10:45→20:48)
[2017-02-21] MEDS: CITALOPRAM 20 MG TABLET PO SCH (10:45)
[2017-02-21] MEDS: SODIUM CHLORIDE FLUSH 10ML SYR IVF SCH ×2 (10:46→20:48)
[2017-02-21 14:07] VITALS: BP 94/70
[2017-02-21 20:31] VITALS: BP 104/74
[2017-02-22 04:10] VITALS: BP 112/78
[2017-02-22] MEDS: ASPIRIN 81 MG TABLET EC PO SCH (06:27)
[2017-02-22] MEDS: INSULIN ASPART 100 UNITS/ML, PEN SQ-INSULIN SCH ×4 (08:11→22:51)
[2017-02-22] MEDS: GABAPENTIN 300 MG CAPSULE PO SCH ×3 (08:12→22:36)
[2017-02-22] MEDS: SODIUM CHLORIDE FLUSH 10ML SYR IVF SCH ×2 (08:12→21:00)
[2017-02-22] MEDS: CITALOPRAM 20 MG TABLET PO SCH (08:12)
[2017-02-22] MEDS: RIVAROXABAN 15 MG TABLET PO SCH ×2 (08:12→18:39)
[2017-02-22] MEDS: SENNA/DOCUSATE TABLET PO SCH (08:13)
[2017-02-22 08:30] VITALS: BP 122/86
[2017-02-22 14:00] VITALS: BP 107/72
[2017-02-22 19:08] VITALS: BP 96/66
[2017-02-23 01:47] VITALS: BP 103/71
[2017-02-23] MEDS: ASPIRIN 81 MG TABLET EC PO SCH (05:49)
[2017-02-23] MEDS: INSULIN ASPART 100 UNITS/ML, PEN SQ-INSULIN SCH ×4 (07:00→21:00)
[2017-02-23 07:21] VITALS: BP 109/73
[2017-02-23] MEDS: SENNA/DOCUSATE TABLET PO SCH (08:41)
[2017-02-23] MEDS: RIVAROXABAN 15 MG TABLET PO SCH ×2 (08:44→16:45)
[2017-02-23] MEDS: CITALOPRAM 20 MG TABLET PO SCH (08:44)
[2017-02-23] MEDS: SODIUM CHLORIDE FLUSH 10ML SYR IVF SCH ×2 (08:44→21:00)
[2017-02-23] MEDS: GABAPENTIN 300 MG CAPSULE PO SCH ×3 (08:44→20:57)
[2017-02-23 14:53] VITALS: BP 100/65
[2017-02-23 19:18] VITALS: BP 97/68
[2017-02-24 02:44] VITALS: BP 101/70
[2017-02-24] MEDS: ASPIRIN 81 MG TABLET EC PO SCH (05:44)
[2017-02-24] MEDS: INSULIN ASPART 100 UNITS/ML, PEN SQ-INSULIN SCH ×4 (07:00→20:33)
[2017-02-24 07:42] VITALS: BP 124/86
[2017-02-24] MEDS: RIVAROXABAN 15 MG TABLET PO SCH ×2 (08:19→18:32)
[2017-02-24] MEDS: SODIUM CHLORIDE FLUSH 10ML SYR IVF SCH ×2 (08:19→20:31)
[2017-02-24] MEDS: GABAPENTIN 300 MG CAPSULE PO SCH ×3 (08:19→20:31)
[2017-02-24] MEDS: CITALOPRAM 20 MG TABLET PO SCH (08:19)
[2017-02-24] MEDS: SENNA/DOCUSATE TABLET PO SCH (09:00)
[2017-02-24 12:15] VITALS: BP 103/74
[2017-02-24 19:33] VITALS: BP 103/76
[2017-02-25 01:46] VITALS: BP 130/87
[2017-02-25] MEDS: ASPIRIN 81 MG TABLET EC PO SCH (06:20)
[2017-02-25] MEDS: INSULIN ASPART 100 UNITS/ML, PEN SQ-INSULIN SCH ×3 (07:00→16:00)
[2017-02-25 07:10] VITALS: BP 120/81
[2017-02-25] MEDS: SENNA/DOCUSATE TABLET PO SCH (09:00)
[2017-02-25] MEDS: GABAPENTIN 300 MG CAPSULE PO SCH ×2 (10:32→17:26)
[2017-02-25] MEDS: SODIUM CHLORIDE FLUSH 10ML SYR IVF SCH (10:33)
[2017-02-25] MEDS: RIVAROXABAN 15 MG TABLET PO SCH ×2 (10:33→17:26)
[2017-02-25] MEDS: CITALOPRAM 20 MG TABLET PO SCH (10:33)
[2017-02-25 14:37] VITALS: BP 112/81
== END 2017-02-25 17:51 | DRG 177 ==
LOC: ED 16:16 → SUATTDRO 18:46 → EDIP 19:27 → CCU 23:13 → 3NE 02-14 18:06
PROVIDERS: ADMIT Internal Medicine
PROC: 0T9B70Z Drainage of Bladder with Drainage Device, Via Natural or Artificial Opening (ICD-10-PCS; principal; 2017-02-12)
PROC: 02HV33Z Insertion of Infusion Device into Superior Vena Cava, Percutaneous Approach (ICD-10-PCS; 2017-02-12)
PROC: 0T9B70Z Drainage of Bladder with Drainage Device, Via Natural or Artificial Opening (ICD-10-PCS; 2017-02-13)
DX: A31.0 Pulmonary mycobacterial infection (principal); E43 Unspecified severe protein-calorie malnutrition; D68.69 Other thrombophilia; E87.2 Acidosis; N39.0 Urinary tract infection, site not specified; J98.11 Atelectasis; J91.8 Pleural effusion in other conditions classified elsewhere; B96.20 Unspecified Escherichia coli [E. coli] as the cause of diseases classified elsewhere; D69.6 Thrombocytopenia, unspecified; E87.5 Hyperkalemia; E86.1 Hypovolemia; I95.9 Hypotension, unspecified; E78.5 Hyperlipidemia, unspecified; I10 Essential (primary) hypertension; J18.1 Lobar pneumonia, unspecified organism; Z78.1 Physical restraint status; Z78.9 Other specified health status; Z86.718 Personal history of other venous thrombosis and embolism; Z68.24 Body mass index [BMI] 24.0-24.9, adult; Z87.01 Personal history of pneumonia (recurrent); Z87.891 Personal history of nicotine dependence; Z98.1 Arthrodesis status; Z90.89 Acquired absence of other organs
CPT/HCPCS: 36415; 36556; 71010; 71020; 80048; 80053; 81001; 82533; 82962; 83605; 83735; 84100; 84145; 85025; 85610; 85730; 86361; 86480; 86703; 87040; 87077; 87081; 87086; 87186; 87899; 93005; 94640; 96361; 96365; 96367; 99292; J0696; J1815; J1940; J2405; J2550; J7060; G0435; J3475; J7030; J7040; J7050